=== PATIENT | female | born 1990 | race Caucasian/White ===

== ENCOUNTER 2019-06-20 11:14 | Inpatient (IN) | payer OTHER ==
[2019-06-20] MEDS ORDERED: Acetaminophen 325 MG Tab PO PRN (11:44)
[2019-06-20] MEDS ORDERED: Ondansetron 4 MG/2 ML SDV IVPUSH PRN (11:45)
[2019-06-20] MEDS ORDERED: Acetaminophen 650 MG Supp RECTAL PRN (11:45)
[2019-06-20] MEDS ORDERED: HYDROmorphone 0.5 MG/0.5 ML Syringe IVPUSH PRN (11:46)
[2019-06-20] MEDS ORDERED: Pantoprazole 40 MG Vial IV SCH ×2 (12:00→21:00)
[2019-06-20] MEDS: Dextrose 5%-Lactated Ringers 1,000 ML IV SCH (12:41)
[2019-06-20] MEDS ORDERED: MVI, Adult with Vitamin K 10 ML, Chromium/Copper/Mang/Selen/Zn 1 ML in Dextrose 5%-Lact... IV ONE ×3 (18:30)
[2019-06-21] MEDS: Dextrose 5%-Lactated Ringers 1,000 ML IV SCH ×4 (00:22→23:25)
[2019-06-21] MEDS ORDERED: Bupivacaine 0.5% 50 ML MDV ONE (06:10)
[2019-06-21] MEDS ORDERED: Meropenem 500 MG SDV ONE (06:10)
[2019-06-21] MEDS ORDERED: Lidocaine 1% with EPINEPHrine 1:100,000 50 ML MDV ONE (06:11)
[2019-06-21] MEDS ORDERED: Acetaminophen 500 MG Tab PO ONE (06:30)
[2019-06-21] MEDS ORDERED: Neostigmine Methylsulfate 1 MG/ML 5 ML Syringe ONE (06:53)
[2019-06-21] MEDS ORDERED: Glycopyrrolate 0.2 MG/ML 5 ML MDV ONE (06:53)
[2019-06-21] MEDS ORDERED: Rocuronium 50 MG/5 ML Vial ONE (06:53)
[2019-06-21] MEDS ORDERED: Dexamethasone 4 MG/ML SDV ONE (06:53)
[2019-06-21] MEDS ORDERED: Lactated Ringers 1,000 ML ONE (06:53)
[2019-06-21] MEDS ORDERED: Succinylcholine 200 MG/10 ML MDV ONE (06:53)
[2019-06-21] MEDS ORDERED: Droperidol 5 MG/2 ML SDV ONE (06:53)
[2019-06-21] MEDS ORDERED: fentaNYL 250 MCG/5 ML SDV ONE (06:53)
[2019-06-21] MEDS ORDERED: Propofol 200 MG/20 ML SDV ONE (06:53)
[2019-06-21] MEDS ORDERED: Ondansetron 4 MG/2 ML SDV ONE (06:53)
[2019-06-21] MEDS ORDERED: Lidocaine 2% 100 MG/5 ML Syringe IVPUSH SCH (08:00)
[2019-06-21] MEDS ORDERED: Lidocaine 0.4%/D5W 2 GM/500 ML BAG IV SCH (08:00)
[2019-06-21] MEDS ORDERED: cefOXitin 2 GM in Sodium Chloride 0.9% 50 ML IV ONE (08:00)
[2019-06-21] MEDS ORDERED: Ketamine 500 MG/5 ML MDV IV SCH (08:00)
[2019-06-21] MEDS ORDERED: Ketamine 50 MG in Sodium Chloride 0.9% 49.5 ML IV SCH (08:00)
[2019-06-21] MEDS ORDERED: Ropivacaine 40 ML, dexAMETHasone 8 MG, EPINEPHrine 0.4 MG, Sodium Chloride 0.9% 37.6 ML NERVRT SCH ×4 (08:00)
[2019-06-21] MEDS ORDERED: hydrOXYzine HCL 100 MG/2 ML SDV IM ONE (09:08)
[2019-06-21] MEDS ORDERED: diphenhydrAMINE 50 MG/ML SDV IVPUSH PRN (09:48)
[2019-06-21] MEDS ORDERED: Metoclopramide 10 MG/2 ML SDV IVPUSH PRN (09:48)
[2019-06-21] MEDS ORDERED: hydrOXYzine HCL 100 MG/2 ML SDV IM PRN (09:48)
[2019-06-21] MEDS ORDERED: Labetalol 20 MG/4 ML Syringe IVPUSH PRN (09:48)
[2019-06-21] MEDS ORDERED: Scopolamine 1.5 MG Transdermal Patch TOP SCH (10:00)
[2019-06-21] MEDS: Lidocaine 5% 700 MG Patch TRDERM SCH (11:01)
[2019-06-21] MEDS: busPIRone 5 MG Tab PO SCH ×2 (11:01→22:22)
[2019-06-21] MEDS: HYDROmorphone 0.5 MG/0.5 ML Syringe IVPUSH PRN ×2 (11:11→17:13)
[2019-06-21] MEDS: HYDROmorphone 1 MG/ML Syringe IV PRN ×3 (13:15→23:26)
[2019-06-21] MEDS: Acetaminophen 325 MG Tab PO SCH ×2 (13:31→19:39)
[2019-06-21] MEDS: cefOXitin 2 GM in Sodium Chloride 0.9% 50 ML IV SCH ×2 (13:31→19:39)
[2019-06-21] MEDS ORDERED: MVI, Adult with Vitamin K 10 ML, Thiamine 200 MG, Chromium/Copper/Mang/Selen/Zn 1 ML in... IV SCH ×4 (16:00)
[2019-06-21] MEDS: Heparin Sodium 5,000 Units/ML Vial SUBCUT SCH (16:01)
[2019-06-21] MEDS ORDERED: Pantoprazole 40 MG Vial IV SCH (21:00)
[2019-06-21] MEDS: Amitriptyline 25 MG Tab PO SCH (22:23)
[2019-06-22] MEDS: cefOXitin 2 GM in Sodium Chloride 0.9% 50 ML IV SCH (02:29)
[2019-06-22] MEDS: HYDROmorphone 1 MG/ML Syringe IV PRN ×2 (02:30→05:09)
[2019-06-22] MEDS: Acetaminophen 325 MG Tab PO SCH ×4 (02:41→20:26)
[2019-06-22] MEDS ORDERED: Iopamidol 612 MG/ML 50 ML SDV PO ONE (04:00)
[2019-06-22] MEDS: Heparin Sodium 5,000 Units/ML Vial SUBCUT SCH ×2 (05:18→16:23)
--- NOTE | 2019-06-22 05:20 | CRLCR ---
INDICATION: Post op bowel resection. PRELIMINARY IMPRESSIONS: 1. No evidence of contrast extravasation is noted on 2 static submitted images. 2. Surgical drain is present in the left upper quadrant. Agree with preliminary report. No additional findings. Dictated by: Leonardo Bay MD @ 06/23/2019 08:37:51 (Electronically Signed)
[2019-06-22] MEDS ORDERED: HYDROmorphone 2 MG Tab PO PRN (07:54)
[2019-06-22] MEDS ORDERED: Dextrose 5%-Lactated Ringers 1,000 ML IV SCH (08:00)
[2019-06-22] MEDS ORDERED: diphenhydrAMINE 25 MG Cap PO PRN (09:24)
[2019-06-22] MEDS: Acetaminophen/oxyCODONE 325-5 MG Tab PO PRN ×4 (09:49→22:10)
[2019-06-22] MEDS: Docusate Sodium 100 MG Cap PO SCH ×2 (09:50→20:35)
[2019-06-22] MEDS: Bisacodyl 5 MG Tab PO SCH ×2 (09:50→20:35)
[2019-06-22] MEDS: busPIRone 5 MG Tab PO SCH ×2 (09:50→20:34)
[2019-06-22] MEDS: SCOPOLAMINE PATCH CHECK TOP SCH (09:51)
[2019-06-22] MEDS: Lidocaine 5% 700 MG Patch TRDERM SCH (09:51)
[2019-06-22] MEDS: Magnesium Sulfate/Water 2 GM in Premix Bag 1 BAG IV SCH ×3 (09:51→22:10)
--- NOTE | 2019-06-22 10:05 | PN ---
DATE OF SERVICE: 06/20/2019 The patient was seen in the emergency room in [place] overnight without a definitive diagnosis. On presenting here, it was fairly clear that she has a partial small bowel obstruction. This has been going on for probably a few weeks, but more intensely in the last few days. The patient describes bloating and cramping after eating, and she has been physically massaging the area of fullness, which will likely be an of distended small bowel and moves the air through that area with mechanical augmentation from pressure on the abdomen. The patient is comfortable at this point. The plan will be to evaluate the patient up and proceed with a limited laparotomy tomorrow with lysis of adhesions and/or bowel resection as indicated. Potential risks including bleeding, infection, injury to underlying viscera, problems with recurrent bowel obstruction over time were reviewed, and the patient wishes to proceed. Her labs all look fairly good other than her liver function tests, which were chronically elevated. We will add a liver biopsy to the equation tomorrow as well. Ab Portillo MD /[id number]
--- NOTE | 2019-06-22 11:20 | PN ---
DATE OF SERVICE: 06/22/2019 The patient has been afebrile with stable vital signs. Oral intake was fairly good and will go up to step-3 diet today. Her upper GI x-ray looks good as well. Will switch over to oral pain medicine. She will likely be ready for discharge home tomorrow. Ab Portillo MD /[id number]
[2019-06-22] MEDS ORDERED: MVI, Adult with Vitamin K 10 ML, Thiamine 200 MG, Chromium/Copper/Mang/Selen/Zn 1 ML in... IV SCH ×4 (16:00)
[2019-06-22] MEDS: CREON 24000 UNIT PO SCH (16:24)
[2019-06-22] MEDS: Amitriptyline 25 MG Tab PO SCH (20:35)
[2019-06-22] MEDS ORDERED: Pantoprazole 40 MG Tab.CR PO SCH (21:00)
[2019-06-22] MEDS: Cyclobenzaprine 10 MG Tab PO PRN (21:03)
[2019-06-23] MEDS: Acetaminophen 325 MG Tab PO SCH ×2 (01:43→07:45)
[2019-06-23] MEDS: Cyclobenzaprine 10 MG Tab PO PRN (04:33)
[2019-06-23] MEDS: Heparin Sodium 5,000 Units/ML Vial SUBCUT SCH (04:33)
[2019-06-23] MEDS: Magnesium Sulfate/Water 2 GM in Premix Bag 1 BAG IV SCH (04:40)
[2019-06-23] MEDS: CREON 24000 UNIT PO SCH (07:44)
[2019-06-23] MEDS ORDERED: Ketorolac 60 MG/2 ML SDV IM ONE (09:00)
[2019-06-23] MEDS ORDERED: Cyanocobalamin (Vitamin B12) 1,000 MCG/ML SDV IM ONE (09:00)
[2019-06-23] MEDS: Bisacodyl 5 MG Tab PO SCH (09:29)
[2019-06-23] MEDS: Docusate Sodium 100 MG Cap PO SCH (09:29)
[2019-06-23] MEDS: busPIRone 5 MG Tab PO SCH (09:29)
[2019-06-23] MEDS: SCOPOLAMINE PATCH CHECK TOP SCH (09:30)
--- NOTE | 2019-06-23 09:34 | DISCH ---
ADMISSION DIAGNOSES: 1. Postprandial abdominal pain. 2. Status post Karla-en-Y gastric bypass surgery. 3. Unspecified surgical malabsorption. 4. B12 deficiency. 5. Vitamin D deficiency. 6. Pancreatic insufficiency. DISCHARGE DIAGNOSES: 1. Exploratory laparotomy with lysis of adhesions. a. Reduction of small bowel volvulus and closure of internal hernia. b. Small bowel resection. c. Second-degree enterotomy to re-establish Karla-en-Y bowel anatomy. d. Placement of Interceed mesh for partial small bowel obstruction secondary to focal volvulus and intussusception at the jejunojejunostomy and extensive abdominal adhesions. HISTORY: Gudelia Gramajo is a 29-year-old female who presented with postprandial abdominal pain. After preoperative evaluation and discussion of possible risks and possible complications, she wished to proceed with surgical procedure. She was hospitalized on 06/20/2019 for IV fluids, pain management, and her surgery was on 06/21/2019. She had no operative complications. Postop day #1, she was started on oral pain medication and her diet was advanced to step 3. She was able to be discharged to home on postoperative day #2. PHYSICAL EXAMINATION: GENERAL: Gudelia is a 29-year-old female. VITAL SIGNS: Height is 5 feet 5 inches, weight is 178 pounds. TPR is 98, 78, 16, blood pressure 113/72. HEENT: Negative. NECK: Supple. HEART: Regular rate and rhythm. LUNGS: Clear. ABDOMEN: Aquacel dressing is on. EXTREMITIES: Without peripheral edema. DISPOSITION: Discharged to home. CONDITION: Stable and improving. FOLLOWUP: Followup appointment with Mica Greco PA-C, at [facility] on 07/02/2019 at 9:00 a.m. HOME MEDICATIONS: 1. Percocet 5/325 mg 1 every 6 hours p.r.n. pain, #28. 2. Tylenol 650 mg every 6 hours p.r.n. pain. 3. Dulcolax 10 mg oral twice daily. 4. Celebrex 200 mg p.o. daily, #14. 5. Flexeril 10 mg oral q.6 hours p.r.n. muscle spasms, #30. 6. Docusate 100 mg oral twice daily. 7. She is to resume taking her home medications: a. Elavil 25 mg at bedtime. b. Creon 2 capsules 3 times a day. c. Cymbalta 20 mg p.o. daily. d. Hyoscyamine 0.125 mg sublingual every 4 hours p.r.n. esophageal spasm. e. Her recommended vitamins and supplements. DIET: Step 3 gastric bypass diet. Drink 8 to 10 glasses of water a day. ACTIVITY: No lifting greater than 10 pounds for 6 weeks. Other activity: Walk at least 6 times daily inside your home. Driving: Do not drive for 6 hours after pain medication. Shower/bathing: May shower. DISCHARGE INSTRUCTIONS: Notify provider if any fever, increased pain, nausea, or vomiting. Keep site clean and dry. Take off Aquacel dressing on , 06/26/2019. Wear abdominal binder for 6 weeks as tolerated. SPECIAL INSTRUCTION: Use incentive spirometer 10 times every hour while awake.
--- NOTE | 2019-06-25 09:17 | OR ---
CORRECTED REPORT DATE OF PROCEDURE: 06/20/2019 SURGEON: Ab Portillo MD PREOPERATIVE DIAGNOSIS: 1. Partial small bowel obstruction. 2. Elevated liver function tests. POSTOPERATIVE DIAGNOSES: 1. Partial small bowel obstruction secondary to focal volvulus and intussusception at jejunojejunostomy. 2. Extensive intraabdominal adhesions. 3. Elevated liver function tests. OPERATIVE PROCEDURES: Exploratory laparotomy with lysis of adhesions and: 1. Reduction of small bowel volvulus and closure of internal hernia (87376). 2. Small bowel resection (51457). 3. Secondary enteroenterostomy to reestablish Karla-en-Y small bowel anatomy (30550). 4. Placement of Interceed mesh to limit recurrent adhesion formation between pelvic and abdominal quintero and underlying viscera (53415). 5. Core biopsies left lobe of liver ANESTHESIA: General. INDICATION FOR PROCEDURE: The patient was seen yesterday morning fairly early in the [place] [facility]. At that point, a firm diagnosis for abdominal pain was not established. She was then seen in the [facility] yesterday and a clear-cut history of partial small bowel obstruction with the patient complaining of extended period of postprandial crampy pain, bloating, and fullness, along with audible bowel sounds all emanating in the left upper and mid abdomen. Plan is to proceed with a limited laparotomy with release of small bowel obstruction. This may involve reduction of any volvulus that might be present, as well as possible bowel resection. Potential risks of the procedure including bleeding, infection, leaks from any GI tract closures, problems with obstruction recurring over time, as well as the remote possibility of cardiopulmonary, septic, or hemorrhagic complications leading to were all discussed, and the patient wishes to proceed. Additionally, the patient has persistently elevated LFT's; will therefore do a liver biopsy to clarify any liver pathology DETAILS OF PROCEDURE: The patient was taken to the operating room. After general endotracheal anesthesia was induced, a Cruz catheter was inserted, and the abdomen prepped and draped. A midline incision, roughly a handsbreadth, from the umbilicus superiorly was then made and carried down through the full-thickness of abdominal wall. Upon entering the peritoneal cavity, general exploration was undertaken. There was quite a bit in the way of adhesions. Some of these were to the anterior abdominal wall, between the small bowel and omentum. Otherwise, there were quite extensive adhesions between loops of the small bowel present as well. These were all taken down. During the course of the dissection, the patient was noted to have a focal volvulus with rotation of a portion of the Karla limb underneath the mesenteric defect associated with a jejunojejunostomy. This was reduced and that area comfortably closed with a silk stitch to close off that defect. The patient's jejunojejunostomy was noted to be markedly edematous and reddened. This would appear probably having been involved in recent episodes of volvulus, accounting for some symptoms, in addition to the volvulus. Given this, a decision was made to resect that anastomosis. Three components of that bowel were divided with DAKSHA staplers as it entered the anastomosis, and the underlying mesentery then divided with Harmonic scalpel, and the specimen then delivered from the field. GI tract continuity was then established with initial [id number] enteroenterostomy between what had been the distal-most biliopancreatic limb and the proximal-most common limb. This was accomplished with internal firing of the Endo-DAKSHA 60 mm stapler. The common opening was then closed transversely with same stapler. The Karla-en-Y anatomy was then established by anastomosing what had been the distal-most Karla limb to the bowel roughly 15 cm distal to the first anastomosis. This was done with the same sequence of staplers. The areas of both anastomoses were reinforced with some 3-0 Vicryl stitch and the mesenteric defect then closed with 2-0 silk stitch. At that point, no further problems were noted. The abdomen was irrigated with antibiotic-containing saline solution. There was not sufficient omentum to cover the area of the incision, as well as lower pelvic and abdominal quintero. So as to prevent adhesion, an Interceed mesh was placed across that area. The midline fascia was then approximated with #2 Vicryl stitch, the subcutaneous tissue with 2 layers of 3 and 4-0 Vicryl stitch deep, and sandip for the skin. Intraoperatively, the patient received bilateral transversus abdominis plane blocks and also had the incision anesthetized with some 0.5% Marcaine and 1% lidocaine mixed. The patient was taken to the recovery room in satisfactory condition. The liver was grossly normal / not enlarged. Two core biopsies were obtained from the left lobe of the liver. The bleeding was controlled with cautery. Ab Portillo MD /[id number]
== END 2019-06-23 10:49 | disposition home or self-care (01) | DRG 331 ==
LOC: JP.ICU 11:14 → JP.MS 06-21 10:12
PROVIDERS: ADMIT Surgery; ATTEND Surgery
PROC: 0DB80ZZ Excision of Small Intestine, Open Approach (ICD-10-PCS; principal; 2019-06-20)
PROC: 0DNW0ZZ Release Peritoneum, Open Approach (ICD-10-PCS; 2019-06-20)
PROC: 0FB20ZX Excision of Left Lobe Liver, Open Approach, Diagnostic (ICD-10-PCS; 2019-06-20)
PROC: 0DS80ZZ Reposition Small Intestine, Open Approach (ICD-10-PCS; 2019-06-20)
PROC: 0WQF0ZZ Repair Abdominal Wall, Open Approach (ICD-10-PCS; 2019-06-20)
PROC: 3E0M05Z Introduction of Adhesion Barrier into Peritoneal Cavity, Open Approach (ICD-10-PCS; 2019-06-20)
DX: K56.51 Intestinal adhesions [bands], with partial obstruction (principal); G25.81 Restless legs syndrome; E66.9 Obesity, unspecified; J45.909 Unspecified asthma, uncomplicated; G47.00 Insomnia, unspecified; R79.89 Other specified abnormal findings of blood chemistry; K46.9 Unspecified abdominal hernia without obstruction or gangrene; Z79.51 Long term (current) use of inhaled steroids; Z79.899 Other long term (current) drug therapy; Z98.84 Bariatric surgery status; Z90.49 Acquired absence of other specified parts of digestive tract; Z88.8 Allergy status to other drugs, medicaments and biological substances; Z88.1 Allergy status to other antibiotic agents; Z88.2 Allergy status to sulfonamides
CPT/HCPCS: 36415; 74240; 80053; 80076; 82150; 82306; 82607; 82728; 82746; 83690; 83735; 84100; 84425; 85025; 85027; 88307; 88313; 94762; A9270-GY; C9113; J0171; J0330; J0694; J1100; J1170; J1644; J1790; J1885; J2185; J2405; J2704; J2710; J2795; J3010; J3410; J3411; J3420; J3475; J3490; J7050; J7120; J7121; Q9967

== ENCOUNTER 2019-07-05 18:59 | Inpatient (IN) | payer OTHER ==
[2019-07-05] MEDS ORDERED: Ondansetron 4 MG/2 ML SDV IVPUSH PRN (19:27)
[2019-07-05] MEDS ORDERED: HYDROmorphone 1 MG/ML Syringe IVPUSH PRN (19:27)
[2019-07-05] MEDS: CREON PO SCH ×2 (19:48→19:49)
[2019-07-05] MEDS: Dextrose 5%-Lactated Ringers 1,000 ML IV SCH (19:50)
[2019-07-05] MEDS ORDERED: Melatonin 3 MG Tab PO PRN (19:59)
[2019-07-05] MEDS: Amitriptyline 10 MG Tab PO SCH (20:35)
[2019-07-05] MEDS: Acetaminophen 325 MG Tab PO PRN (20:35)
[2019-07-05] MEDS ORDERED: Amitriptyline 25 MG Tab PO SCH (21:00)
[2019-07-06] MEDS: Dextrose 5%-Lactated Ringers 1,000 ML IV SCH ×3 (03:43→21:31)
[2019-07-06] MEDS ORDERED: Bupivacaine 0.5% 50 ML MDV ONE (07:02)
[2019-07-06] MEDS ORDERED: Lidocaine 1% with EPINEPHrine 1:100,000 50 ML MDV ONE (07:03)
[2019-07-06] MEDS: Acetaminophen 325 MG Tab PO PRN (07:15)
[2019-07-06] MEDS: CREON PO SCH ×2 (07:38→12:58)
[2019-07-06] MEDS ORDERED: Meropenem 500 MG SDV ONE (07:44)
[2019-07-06] MEDS ORDERED: Celecoxib 200 MG Cap PO ONE (08:00)
[2019-07-06] MEDS ORDERED: fentaNYL 250 MCG/5 ML SDV ONE (08:01)
[2019-07-06] MEDS ORDERED: Propofol 200 MG/20 ML SDV ONE (08:02)
[2019-07-06] MEDS ORDERED: Neostigmine Methylsulfate 1 MG/ML 5 ML Syringe ONE (08:02)
[2019-07-06] MEDS ORDERED: Glycopyrrolate 0.2 MG/ML 5 ML MDV ONE (08:02)
[2019-07-06] MEDS ORDERED: Succinylcholine 200 MG/10 ML MDV ONE (08:02)
[2019-07-06] MEDS ORDERED: Dexamethasone 4 MG/ML SDV ONE (08:02)
[2019-07-06] MEDS ORDERED: Rocuronium 50 MG/5 ML Vial ONE (08:02)
[2019-07-06] MEDS ORDERED: Ondansetron 4 MG/2 ML SDV ONE (08:02)
[2019-07-06] MEDS ORDERED: Ketamine 50 MG in Sodium Chloride 0.9% 49.5 ML IV SCH (09:00)
[2019-07-06] MEDS ORDERED: Magnesium Sulfate 2.2 GM in Sodium Chloride 0.9% 100 ML IV ONE (09:00)
[2019-07-06] MEDS ORDERED: Ketamine 500 MG/5 ML MDV IV SCH (09:00)
[2019-07-06] MEDS ORDERED: Ropivacaine 38 ML, dexAMETHasone 8 MG, EPINEPHrine 0.4 MG, Sodium Chloride 0.9% 39.6 ML NERVRT SCH ×4 (09:00)
[2019-07-06] MEDS ORDERED: Albuterol/Ipratropium 3.0-0.5 MG/3 ML Neb Soln INH ONE (09:00)
[2019-07-06] MEDS ORDERED: Magnesium Sulfate 4.8 GM in Sodium Chloride 0.9% 250 ML IV ONE (09:00)
[2019-07-06] MEDS ORDERED: Ampicillin/Sulbactam Na 3 GM in Sodium Chloride 0.9% 100 ML IV ONE (09:00)
[2019-07-06] MEDS ORDERED: Lactated Ringers 1,000 ML ONE (09:47)
[2019-07-06] MEDS ORDERED: hydrOXYzine HCL 100 MG/2 ML SDV IM ONE (10:27)
[2019-07-06] MEDS ORDERED: diphenhydrAMINE 50 MG/ML SDV IVPUSH PRN ×2 (10:48→12:27)
[2019-07-06] MEDS ORDERED: diphenhydrAMINE 25 MG Cap PO PRN (10:48)
[2019-07-06] MEDS ORDERED: Ondansetron 4 MG/2 ML SDV IVPUSH PRN (10:48)
[2019-07-06] MEDS ORDERED: Naloxone 0.4 MG/ML SDV IVPUSH PRN (10:48)
[2019-07-06] MEDS ORDERED: Meperidine PF 100 MG/ML Syringe IM ONE (10:55)
[2019-07-06] MEDS ORDERED: Naloxone 0.4 MG/ML SDV IV PRN (12:20)
[2019-07-06] MEDS ORDERED: Labetalol 20 MG/4 ML Syringe IVPUSH PRN (12:27)
[2019-07-06] MEDS ORDERED: Cyclobenzaprine 10 MG Tab PO PRN (12:27)
[2019-07-06] MEDS ORDERED: hydrOXYzine HCL 100 MG/2 ML SDV IM PRN (12:27)
[2019-07-06] MEDS ORDERED: Metoclopramide 10 MG/2 ML SDV IVPUSH PRN (12:27)
[2019-07-06] MEDS ORDERED: Acetaminophen 500 MG Tab PO PRN (12:27)
[2019-07-06] MEDS ORDERED: Albuterol 8 GM Inhaler INH PRN (12:43)
[2019-07-06] MEDS: HYDROmorphone/Normal Saline 15 MG/30 ML PCA IV PRN (13:22)
[2019-07-06] MEDS ORDERED: Pantoprazole 40 MG Vial IVPUSH SCH (14:00)
[2019-07-06] MEDS ORDERED: Tamsulosin 0.4 MG Cap.ER PO ONE (14:00)
[2019-07-06] MEDS: SCOPOLAMINE PATCH CHECK TOP SCH (14:25)
[2019-07-06] MEDS: Acetaminophen 500 MG Tab PO SCH ×2 (14:26→21:40)
[2019-07-06] MEDS: MVI, Adult with Vitamin K 10 ML, Thiamine 200 MG, Chromium/Copper/Mang/Selen/Zn 1 ML in... IV SCH ×4 (14:31)
[2019-07-06] MEDS: Ampicillin/Sulbactam Na 3 GM in Sodium Chloride 0.9% 100 ML IV SCH ×2 (14:38→21:40)
[2019-07-06] MEDS ORDERED: Magnesium Sulfate 4.8 GM in Sodium Chloride 0.9% 250 ML IV SCH (15:30)
[2019-07-06] MEDS: CREON 24000 UNIT PO SCH (19:02)
[2019-07-06] MEDS: Heparin Sodium 5,000 Units/ML Vial SUBCUT SCH (19:40)
[2019-07-06] MEDS: Docusate Sodium 100 MG Cap PO SCH (21:40)
[2019-07-06] MEDS: Tamsulosin 0.4 MG Cap.ER PO SCH (21:40)
[2019-07-06] MEDS: Amitriptyline 10 MG Tab PO SCH (21:40)
[2019-07-06] MEDS: Bisacodyl 5 MG Tab PO SCH (21:40)
[2019-07-07] MEDS: Ampicillin/Sulbactam Na 3 GM in Sodium Chloride 0.9% 100 ML IV SCH ×2 (03:34→09:00)
[2019-07-07] MEDS ORDERED: Iopamidol 612 MG/ML 50 ML SDV PO STA (03:43)
--- NOTE | 2019-07-07 04:34 | CRLCR ---
Indication: Leak check Technique: Two frontal views of the abdomen, following the administration of oral contrast. Comparison: 06/22/2019 Findings/Impression : Postsurgical changes again seen. Contrast traverses the gastrojejunostomy without evidence of gross extravasation, with opacification of lower abdominal and pelvic small bowel segments on the 2nd image. Dictated by Emeka Rasmussen MD @ 07/07/2019 4:31:20 AM Dictated by: Emeka Rasmussen MD @ 07/07/2019 04:31:26 (Electronically Signed)
[2019-07-07] MEDS: Acetaminophen 500 MG Tab PO SCH ×3 (05:35→22:33)
[2019-07-07] MEDS ORDERED: Scopolamine 1.5 MG Transdermal Patch TRDERM PRN (07:12)
[2019-07-07] MEDS: CREON 24000 UNIT PO SCH ×3 (08:44→17:38)
[2019-07-07] MEDS: Docusate Sodium 100 MG Cap PO SCH ×2 (08:44→20:01)
[2019-07-07] MEDS: Celecoxib 200 MG Cap PO SCH ×2 (08:44→20:01)
[2019-07-07] MEDS: DULoxetine 20 MG Cap PO SCH (08:45)
[2019-07-07] MEDS: Heparin Sodium 5,000 Units/ML Vial SUBCUT SCH ×2 (08:45→19:54)
[2019-07-07] MEDS: Bisacodyl 5 MG Tab PO SCH ×2 (08:45→20:01)
--- NOTE | 2019-07-07 09:56 | PN ---
DATE OF SERVICE: 07/07/2019 SUBJECTIVE: Gudelia is postoperative day #1. Vital signs have been stable. Oral intake 450. Urine output via Cruz catheter is 1975. She has reported some nausea. Pain has been controlled with a PAN CLEANER. REVIEW OF SYSTEMS: Remainder of review of systems negative for any pertinent positives and negatives. OBJECTIVE: GENERAL: Gudelia Gramajo is a pleasant 29-year-old female. She is awake and alert. VITAL SIGNS: TPR is 96.2, 64, 18, blood pressure 101/66. HEENT: Negative. NECK: Supple. HEART: Regular rate and rhythm. LUNGS: Clear. ABDOMEN: Dressings dry and intact, and abdominal binder is on. ASSESSMENT: 1. Exploratory laparotomy with lysis of adhesions. a. Resection of the jejunojejunostomy. b. Reconstruction of the enteroenterostomy for re-establishing Karla-en-Y bowel anatomy. c. Separate small bowel strictureplasty. d. Enterotomy for decompression of distended small bowel. POSTOPERATIVE DIAGNOSES: Edematous obstruction of the jejunojejunostomy, focal stricture at the distal biliary pancreatic limb, and proximal distention of the Karla limb. Date of surgery: 07/06/2019. Surgeon: Ab Portillo MD. PLAN: 1. Step 2 gastric bypass diet with no cereal. 2. Scopolamine patch, apply now. Replace every 72 hours. 3. Continue Cruz catheter for accurate intake and output. 4. Continue PAN CLEANER for pain management. 5. We will evaluate p.r.n. or in a.m. 6. Encouraged use of incentive spirometer and ambulating. Mica Greco PA-C /[id number]
[2019-07-07] MEDS: SCOPOLAMINE PATCH CHECK TOP SCH (10:12)
[2019-07-07] MEDS: HYDROmorphone/Normal Saline 15 MG/30 ML PCA IV PRN (10:40)
--- NOTE | 2019-07-07 12:23 | OR ---
DATE OF PROCEDURE: 07/06/2019 SURGEON: Ab Portillo MD PREOPERATIVE DIAGNOSIS: Obstructed jejunojejunostomy. POSTOPERATIVE DIAGNOSES: 1. Edematous and obstructed jejunojejunostomy. 2. Focal stricture of distal biliopancreatic limb. 3. Marked distention of Karla limb proximal to jejunojejunostomy. OPERATIVE PROCEDURES: 1. Exploratory laparotomy with lysis of adhesions. a. Resection of jejunojejunostomy (78008). b. Secondary enteroenterostomy for reestablishing Karla-en-Y small bowel anatomy (52130). c. Separate small bowel stricturoplasty (79954). d. Enterostomy for tube decompression of distended Karla limb (17187). e. Placement of Interceed mesh to displace pelvic and abdominal wall from underlying viscera to limit recurrent adhesion formation (72763). ANESTHESIA: General. INDICATIONS FOR PROCEDURE: This is a 29-year-old status post a recent small-bowel resection for an obstruction. She had been doing well until the last 48 hours or so when she developed a crampy abdominal pain particularly after eating. CT scan showed what appeared to be obstruction at the recent enteroenterostomy with fecalization of the small bowel contents involving that anastomosis. Plan is to proceed with an exploratory laparotomy with lysis of adhesions and resection of small bowel as necessary. Potential risks including bleeding, infection, leaks from GI tract closures, possible recurrence of the problem over time as well as possibility of cardiopulmonary, septic, or hemorrhagic complications leading to were all discussed, and the patient wishes to proceed. DETAILS OF PROCEDURE: The patient was taken to the operating room, and after general endotracheal anesthesia was induced, a Cruz catheter was inserted, and the abdomen was prepped and draped. The previous upper midline incision was reused and carried down through the skin, subcutaneous tissue, fascia. In the peritoneal cavity, there were some scattered adhesions present to the abdominal wall, but most of these had been prevented due to an Interceed mesh that was placed in the recent procedure. Exploration showed markedly distended Karla limb leading up to a quite edematous jejunojejunostomy. Just beyond that, there was a sharp adhesion to the small bowel in the common limb and this appeared to be the actual cause of the obstruction. After this was freed up, the anastomosis was felt to be still quite edematous and at risk for not emptying well and we felt it would be best to revise that. Components of that enteroenterostomy were then divided more or less flush with the anastomosis with DAKSHA sandip as well as the underlying mesentery and that specimen delivered from the field. The small bowel anatomy was then reconstructed with initial anastomosis between what had been the distal-most biliopancreatic limb to the proximal-most common limb. This was a side- to-side enteroenterostomy with 60 mm DAKSHA stapler. Common opening was closed transversely with same stapler and angles anastomosed and mesenteric defect approximated with some 3-0 Vicryl stitch. The Karla-en-Y anatomy was then reconstructed with anastomosis of the Karla limb to the small bowel roughly 15 cm distal to the first anastomosis. This was closing up and we are essentially not changing the patient's limb lengths to any meaningful extent, so anastomosis was accomplished with same staple sequence, other than we made this anastomosis slightly longer with 1 additional 30 mm internal DAKSHA staple line. The angles of anastomosis in this case were reapproximated with some 3-0 Vicryl at the angles of anastomosis and mesenteric defect was closed with a 2-0 silk stitch and provided some permanency. Prior to this anastomosis, the end of the Karla limb had been opened and the tube placed into this area and the small bowel contents evacuated from the Karla limb. This again charlotte some semisolid material that we were basically able to suck all that out to make the anastomosis safer in terms of any food particles getting caught into the staple lines. Examination of the biliopancreatic limb showed an area of roughly 20 cm proximal to the current anastomosis which was fairly strictured in appearance. Common enterotomy was made and bowel flipped over on itself and then internal firing of the DAKSHA 60 mm stapler was accomplished, and likewise, this was closed off with a transversely oriented staple line and the angles of anastomosis were reinforced with some 3-0 Vicryl stitch, and in this case, there were no mesenteric defects. No further problems were noted at this point. The abdomen was irrigated with antibiotic- containing saline solution. Interceed mesh was then placed underneath the incision to limit recurrent adhesion formation. This extended down towards the pelvic wall as well. Midline fascia was then approximated with #2 Vicryl stitch and the subcutaneous tissue with 2 layers of 3-0 and 4-0 Vicryl stitch deep and then sandip for the skin. Dressing was applied. The patient was taken to the recovery room in satisfactory condition. During the procedure, the patient received bilateral transversus abdominis plane blocks and also having fascia injected with 0.5% Marcaine mixed with lidocaine to augment postoperative pain control. Ab Portillo MD /[id number]
[2019-07-07] MEDS: MVI, Adult with Vitamin K 10 ML, Thiamine 200 MG, Chromium/Copper/Mang/Selen/Zn 1 ML in... IV SCH ×4 (14:02)
[2019-07-07] MEDS: Pantoprazole 40 MG Delayed-Release Granules 1 Packet PO SCH (17:37)
[2019-07-07] MEDS: Amitriptyline 10 MG Tab PO SCH (20:01)
[2019-07-07] MEDS: Tamsulosin 0.4 MG Cap.ER PO SCH (20:01)
[2019-07-07] MEDS: Dextrose 5%-Lactated Ringers 1,000 ML IV SCH (20:05)
[2019-07-08] MEDS: Acetaminophen 500 MG Tab PO SCH ×3 (05:04→21:24)
[2019-07-08] MEDS: CREON 24000 UNIT PO SCH ×3 (08:50→17:29)
[2019-07-08] MEDS: Dextrose 5%-Lactated Ringers 1,000 ML IV SCH (08:50)
[2019-07-08] MEDS ORDERED: Cyanocobalamin (Vitamin B12) 1,000 MCG/ML SDV IM ONE (09:00)
[2019-07-08] MEDS: Celecoxib 200 MG Cap PO SCH ×2 (09:05→20:25)
[2019-07-08] MEDS: Bisacodyl 5 MG Tab PO SCH ×2 (09:06→20:25)
[2019-07-08] MEDS: Docusate Sodium 100 MG Cap PO SCH ×2 (09:06→20:25)
[2019-07-08] MEDS: Heparin Sodium 5,000 Units/ML Vial SUBCUT SCH ×2 (09:07→20:24)
[2019-07-08] MEDS: DULoxetine 20 MG Cap PO SCH (09:07)
[2019-07-08] MEDS: HYDROmorphone 2 MG Tab PO PRN ×4 (09:18→20:23)
[2019-07-08] MEDS: SCOPOLAMINE PATCH CHECK TOP SCH (10:39)
--- NOTE | 2019-07-08 13:15 | PN ---
DATE OF SERVICE: 07/08/2019 SUBJECTIVE: Gudelia is postoperative day #2. The pain has been controlled. Vital signs are stable. Oral intake 780, urine output 600. REVIEW OF SYSTEMS: Remainder of review of systems negative for any pertinent positives and negatives. OBJECTIVE: GENERAL: Gudelia Gramajo is a pleasant 29-year-old female. She is resting comfortably in bed. VITAL SIGNS: TPR is 95,7, 62, 15, blood pressure 93/60. HEENT: Negative. NECK: Supple. HEART: Regular rate and rhythm. LUNGS: Clear. ABDOMEN: Dressings dry and intact. Abdominal binder is on. EXTREMITIES: Without peripheral edema. ASSESSMENT: 1. Exploratory laparotomy with lysis of adhesions: a. Resection of the jejunojejunostomy. b. Reconstruction of the enteroenterostomy for re-establishing Karla-en-Y bowel anatomy. c. Separate small bowel strictureplasty. d. Enterotomy for decompression of distended small bowel. PLAN: 1. 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 2. She may shower. 3. Dilaudid 2 to 4 mg every 4 hours p.r.n. pain. 4. Continue use of incentive spirometer 10 times every hour while awake, ambulate. 5. Planned discharge in [facility]. Mica Greco PA-C /[id number]
[2019-07-08] MEDS: MVI, Adult with Vitamin K 10 ML, Thiamine 200 MG, Chromium/Copper/Mang/Selen/Zn 1 ML in... IV SCH ×4 (14:17)
[2019-07-08] MEDS: Pantoprazole 40 MG Delayed-Release Granules 1 Packet PO SCH (15:55)
[2019-07-08] MEDS: Amitriptyline 10 MG Tab PO SCH (20:25)
[2019-07-08] MEDS: Tamsulosin 0.4 MG Cap.ER PO SCH (20:26)
[2019-07-08] MEDS ORDERED: Calcium Carbonate 500 MG Tab.Chew PO PRN (20:59)
[2019-07-09] MEDS: HYDROmorphone 2 MG Tab PO PRN ×2 (03:34→09:00)
[2019-07-09] MEDS: Acetaminophen 500 MG Tab PO SCH (06:11)
[2019-07-09] MEDS ORDERED: Magnesium Hydroxide 400 MG/5 ML Susp 30 ML Cup PO PRN (07:39)
[2019-07-09] MEDS: CREON 24000 UNIT PO SCH (08:55)
[2019-07-09] MEDS: Celecoxib 200 MG Cap PO SCH (08:56)
[2019-07-09] MEDS: Bisacodyl 5 MG Tab PO SCH (08:56)
[2019-07-09] MEDS: Docusate Sodium 100 MG Cap PO SCH (08:57)
[2019-07-09] MEDS: DULoxetine 20 MG Cap PO SCH (08:57)
[2019-07-09] MEDS: Heparin Sodium 5,000 Units/ML Vial SUBCUT SCH (09:01)
--- NOTE | 2019-07-10 10:12 | DISCH ---
ADMISSION DIAGNOSES: Intractable nausea, vomiting, abdominal pain, status post repair of volvulus and small bowel obstruction on 06/21/2019 by Ab Portillo MD, SP Karla-en-Y gastric bypass surgery, insomnia secondary to restless legs syndrome, iron deficiency, bilateral dry eyes, epigastric pain, iron deficiency anemia, vitamin B12 deficiency, vitamin B1 deficiency, chronic daily headache. DISCHARGE DIAGNOSES: Intractable nausea, vomiting, abdominal pain, status post repair of volvulus and small bowel obstruction on 06/21/2019 by Ab Portillo MD, SP Karla-en-Y gastric bypass surgery, insomnia secondary to restless legs syndrome, iron deficiency, bilateral dry eyes, epigastric pain, iron deficiency anemia, vitamin B12 deficiency, vitamin B1 deficiency, chronic daily headache. HISTORY: Gudelia Gramajo had surgery at [facility] on 06/21/2019. She was doing well until she had sudden onset of intractable nausea, vomiting, and abdominal pain. She went to [facility] and was transferred to [place], [place]. After preoperative evaluation and discussion of possible risks and possible complications, she wished to proceed with surgical procedure. HOSPITAL COURSE: Surgery was on 07/06/2019. She had no operative complications. On postop day 1, she was started on a step 2 gastric bypass diet with no cereal. 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 On postop day 2, LIFE ENRICHMENT SPECIALIST was discontinued. Dressing off. Able to shower, and started on oral pain medication. On postop day 3, she was able to be discharged to home. Activity good. Pain was managed. Vital signs were stable. Oral intake adequate. PHYSICAL EXAMINATION: GENERAL: Gudelia Gramajo is a pleasant 29-year-old female. VITAL SIGNS: Height is 5 feet 5.35 inches, weight is 168 pounds 12 ounces, BMI 27.8. TPR 96.5, 74, 16. Blood pressure 100/73. HEENT: Negative. NECK: Supple. HEART: Regular rate and rhythm. LUNGS: Clear. ABDOMEN: Aquacel dressing is on stapled incision. Abdominal binder is on. EXTREMITIES: Without peripheral edema. DISPOSITION: Discharged to home. CONDITION: Stable and improving. FOLLOWUP: Followup appointment with Mica Greco PA-C, on 07/14/2019 at 10 a.m. HOME MEDICATIONS: 1. Tylenol Extra Strength 1000 mg every 8 hours scheduled. 2. Celebrex 200 mg oral daily, #14. 3. Flexeril 10 mg oral q.8 hours p.r.n. muscle spasms, #30. 4. Dilaudid 2 mg every 6 hours p.r.n. pain, #28. 5. Zofran ODT 4 mg every 4 hours p.r.n. nausea, #30. 6. Flomax 0.4 mg at bedtime, #14. She is to resume her home medications of Ventolin inhaler 2 puffs every 6 hours p.r.n. wheezing, Elavil 10 mg oral at bedtime, Creon 2 capsules oral daily 3 times a day, Cymbalta 20 mg oral daily, Colace 100 mg oral twice daily, bisacodyl 10 mg oral twice daily, hydroxyzine 25 mg oral daily p.r.n. anxiety. She is to discontinue taking her vitamins and supplements until after first postop appointment. DIET: Step 2 gastric bypass with no cereal for 2 weeks. OTHER ACTIVITY: No lifting greater than 10 pounds for 6 weeks. Walk at least 6 times daily inside your home. Driving: Do not drive for 1 week or within 6 hours of taking pain medication. Shower/bathing: May shower. DISCHARGE INSTRUCTIONS: Notify provider if any fever, increased pain, nausea, vomiting. Keep site clean and dry. Wound incision care. Wear abdominal binder for 6 weeks and then as tolerated. Take off Aquacel dressing on 07/12/2019. SPECIAL INSTRUCTION: Use incentive spirometer 10 times every hour while awake for over 1 week.
== END 2019-07-09 09:45 | disposition home or self-care (01) | DRG 326 ==
LOC: JP.MS 18:59
PROVIDERS: ADMIT Surgery; ATTEND Surgery
PROC: 0D160ZA Bypass Stomach to Jejunum, Open Approach (ICD-10-PCS; principal; 2019-07-05)
PROC: 0D980ZZ Drainage of Small Intestine, Open Approach (ICD-10-PCS; 2019-07-05)
PROC: 0DQ80ZZ Repair Small Intestine, Open Approach (ICD-10-PCS; 2019-07-05)
PROC: 0DNW0ZZ Release Peritoneum, Open Approach (ICD-10-PCS; 2019-07-05)
PROC: 3E0M05Z Introduction of Adhesion Barrier into Peritoneal Cavity, Open Approach (ICD-10-PCS; 2019-07-05)
DX: K94.13 Enterostomy malfunction (principal); K56.2 Volvulus; E51.9 Thiamine deficiency, unspecified; G47.00 Insomnia, unspecified; G25.81 Restless legs syndrome; D50.9 Iron deficiency anemia, unspecified; H04.123 Dry eye syndrome of bilateral lacrimal glands; E53.8 Deficiency of other specified B group vitamins; Z98.84 Bariatric surgery status; K59.00 Constipation, unspecified; D72.829 Elevated white blood cell count, unspecified; Z91.048 Other nonmedicinal substance allergy status; Z88.1 Allergy status to other antibiotic agents; Z88.2 Allergy status to sulfonamides; Z88.8 Allergy status to other drugs, medicaments and biological substances; Z91.09 Other allergy status, other than to drugs and biological substances; D64.9 Anemia, unspecified; J45.909 Unspecified asthma, uncomplicated; Z90.49 Acquired absence of other specified parts of digestive tract
CPT/HCPCS: 36415; 74240; 80053; 82728; 83735; 84100; 84702; 85027; 88307; A9270-GY; C9113; J0171; J0295; J0330; J1100; J1170; J1644; J2175; J2185; J2405; J2704; J2710; J2795; J3010; J3410; J3411; J3420; J3475; J3490; J7050; J7120; J7121; J7620-GY; Q9967

== ENCOUNTER 2019-08-31 20:08 | Emergency (ER) | payer OTHER ==
--- NOTE | 2019-08-31 20:52 | EDM.PDOC ---
ED HPI GENERAL MEDICAL PROBLEM - General Chief Complaint: Abdominal Pain Stated Complaint: CONCERNED ABOUT BOWEL OBSTRUCTION Time Seen by Provider: 08/31/19 20:52 Source of Information: Reports: Patient History Limitations: Reports: No Limitations - History of Present Illness INITIAL COMMENTS - FREE TEXT/NARRATIVE: pt arrived with a history of nausea and pain in the upper abdoman. Pt is post RNY and has had several bowel obstructions. she has had bad diarrhea for 3 weeks. She has 7-10 stools on a daily basis. Onset: Gradual Duration: Hour(s): Location: Reports: Abdomen Associated Symptoms: Reports: Malaise, Nausea/Vomiting, Weakness Middle Abdomen Pain Score (Numeric/FACES): 3 - Related Data Allergies Allergy/AdvReac Type Severity Reaction Status Date / Time sumatriptan Allergy Severe Hives Verified 08/31/19 20:32 divalproex sodium Allergy Intermediate Other Verified 08/31/19 20:32 [From Depakote] Sulfa (Sulfonamide Allergy Intermediate Rash Verified 08/31/19 20:32 Antibiotics) sulfamethoxazole Allergy Intermediate Rash Verified 08/31/19 20:32 [From Bactrim] venlafaxine HCl Allergy Intermediate Other Verified 08/31/19 20:32 [From Effexor] adhesive Allergy Mild Rash Verified 08/31/19 20:32 trimethoprim [From Bactrim] Allergy Mild Rash Verified 08/31/19 20:32 Home Meds: Home Meds Albuterol [Ventolin HFA] 2 puff INH Q6H PRN 01/26/14 [History] DULoxetine [Cymbalta] 20 mg PO DAILY 01/26/14 [History] Amitriptyline [Elavil] 25 mg PO BEDTIME 03/13/18 [History] Amylase/Lipase/Protease [Aurora DR 24,000 Unit] 3 cap PO TIDMEALS 06/20/19 [ History] Acetaminophen [Tylenol] 500 - 1,500 mg PO Q6H PRN 07/05/19 [History] Acetaminophen [Tylenol Extra Strength] 1,000 mg PO Q8H tablet 07/09/19 [Rx] Cyclobenzaprine [Flexeril] 10 mg PO Q8H PRN #30 tablet 07/09/19 [Rx] Ondansetron [Zofran ODT] 4 mg PO Q4H PRN #30 tab.dis 07/09/19 [Rx] Dicyclomine [Bentyl] 20 mg PO BID 08/31/19 [History] busPIRone [Buspar] 15 mg PO BID 08/31/19 [History] Past Medical History HEENT History: Reports: Other (See Below) Other HEENT History: wears reading glasses Cardiovascular History: Reports: Hypertension Respiratory History: Reports: Asthma, Bronchitis, Recurrent, Pneumonia, Recurrent Gastrointestinal History: Reports: Bowel Obstruction, Cholelithiasis, Chronic Constipation, Chronic Diarrhea, Diverticulosis, Gastritis, GERD, Irritable Bowel Syndrome, Other (See Below) Other Gastrointestinal History: elevated liver enzymes Genitourinary History: Reports: Retention, Urinary, UTI, Recurrent Other Genitourinary History: postop urinary retention 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: Musculoskeletal History: Reports: Back Pain, Chronic, Fracture, Other (See Below ) Other Musculoskeletal History: chronic back pain Neurological History: Reports: Headaches, Chronic, Migraines Psychiatric History: Reports: Anxiety, Depression, Emotional Problems, Panic Attack Endocrine/Metabolic History: Reports: Obesity/BMI 30+, Vitamin D Deficiency, Other (See Below) Other Endocrine/Metabolic History: hypoclycemic, vitamin A deficiency, pancreatic insufficiency Hematologic History: Reports: Anemia, B12 Deficiency, Iron Deficiency Dermatologic History: Reports: Other (See Below) Other Dermatologic History: occasional rash - Infectious Disease History Infectious Disease History: Reports: Chicken Pox - Past Surgical History HEENT Surgical History: Reports: None GI Surgical History: Reports: Bariatric Procedure, Cholecystectomy, EGD, Esophageal Dilatation, Hernia, Abdominal, Lysis of Adhesions, Small Bowel Other GI Surgeries/Procedures: c/s x2 Female Surgical History: Reports: Section, Other (See Below) Other Female Surgeries/Procedures: IUD - paragard Social & Family History - Family History Family Medical History: Noncontributory - Tobacco Use Smoking Status *Q: Never Smoker - Caffeine Use Caffeine Use: Reports: Energy Drinks Other Caffeine Use: zero calorie - Recreational Drug Use Recreational Drug Use: No ED ROS GENERAL - Review of Systems Review Of Systems: See Below Constitutional: Reports: Weakness, Decreased Appetite HEENT: Reports: No Symptoms Respiratory: Reports: No Symptoms Cardiovascular: Reports: No Symptoms Endocrine: Reports: No Symptoms GI/Abdominal: Reports: Abdominal Pain, Diarrhea, Nausea, Other : Reports: No Symptoms Musculoskeletal: Reports: No Symptoms Skin: Reports: No Symptoms ED EXAM, GI/ABD - Physical Exam Exam: See Below Text/Narrative:: pt arrived with pain in the upper abdoman. She is having about 5-7 stools daily. The diarrhea has been going on for 2 weeks. Exam Limited By: No Limitations General Appearance: Alert, Anxious, Mild Distress Ears: Normal TMs Nose: Normal Inspection Throat/Mouth: Normal Inspection Head: Atraumatic Neck: Normal Inspection Respiratory/Chest: No Respiratory Distress Cardiovascular: Regular Rate, Rhythm GI/Abdominal Exam: Other (tender in the upper abdoman not guarded. Pt has very hyperactive bowel sounds. ) (Female) Exam: Deferred Rectal (Female) Exam: Deferred Back Exam: Normal Inspection Extremities: Normal Inspection Neurological: Alert, Oriented, Normal Cognition Psychiatric: Normal Affect Course - Vital Signs Last Recorded V/S: Last Vital Signs Temp 36.4 C 08/31/19 20:30 Pulse 75 08/31/19 22:40 Resp 14 08/31/19 22:40 BP 107/75 08/31/19 22:40 Pulse Ox 99 08/31/19 22:40 - Orders/Labs/Meds Labs: Laboratory Tests 08/31/19 08/31/19 08/31/19 Range/Units 21:06 21:07 21:07 WBC 4.8 (4.5-11.0) K/uL RBC 4.10 (3.30-5.50) M/uL Hgb 11.6 L (12.0-15.0) g/dL Hct 38.0 (36.0-48.0) % MCV 93 (80-98) fL MCH 28 (27-31) pg MCHC 31 L (32-36) % Plt Count 233 (150-400) K/uL Neut % (Auto) 45 (36-66) % Lymph % (Auto) 41 (24-44) % [place] % (Auto) 13 H (2-6) % Eos % (Auto) 1 L (2-4) % Baso % (Auto) 1 (0-1) % Sodium 141 (140-148) mmol/L Potassium 3.1 L (3.6-5.2) mmol/L Chloride 104 (100-108) mmol/L Carbon Dioxide 26 (21-32) mmol/L Anion Gap 14.1 H (5.0-14.0) mmol/L BUN 5 L (7-18) mg/dL Creatinine 0.6 (0.6-1.0) mg/dL Est Cr Clr Drug Dosing 129.29 mL/min Estimated GFR (MDRD) > 60 (>60) Glucose 83 (74-106) mg/dL Calcium 8.0 L (8.5-10.1) mg/dL Total Bilirubin 0.5 (0.2-1.0) mg/dL AST 21 (15-37) U/L ALT 32 (12-78) U/L Alkaline Phosphatase 81 (46-116) U/L C-Reactive Protein (0.0-0.3) mg/dL Total Protein 6.8 (6.4-8.2) g/dL Albumin 3.3 L (3.4-5.0) g/dL Globulin 3.5 (2.3-3.5) g/dL Albumin/Globulin Ratio 0.9 L (1.2-2.2) Lipase (73-393) U/L Urine Color [place] A (YELLOW) Urine Appearance Slightly cloudy A (CLEAR) Urine pH 5.5 (5.0-8.0) Ur Specific [place] >= 1.030 (1.008-1.030) Urine Protein Negative (NEGATIVE) mg/dL Urine Glucose (UA) Negative (NEGATIVE) mg/dL Urine Ketones Negative (NEGATIVE) mg/dL Urine Occult Blood Negative (NEGATIVE) Urine Nitrite Negative (NEGATIVE) Urine Bilirubin Negative (NEGATIVE) Urine Urobilinogen 0.2 (0.2-1.0) EU/dL Ur Leukocyte Esterase Negative (NEGATIVE) Urine RBC 5-10 H (0-5) Urine WBC 0-5 (0-5) Ur Epithelial Cells Few Amorphous Sediment Few Urine Bacteria Not seen Urine Mucus Rare 08/31/19 08/31/19 Range/Units 21:15 21:15 WBC (4.5-11.0) K/uL RBC (3.30-5.50) M/uL Hgb (12.0-15.0) g/dL Hct (36.0-48.0) % MCV (80-98) fL MCH (27-31) pg MCHC (32-36) % Plt Count (150-400) K/uL Neut % (Auto) (36-66) % Lymph % (Auto) (24-44) % [place] % (Auto) (2-6) % Eos % (Auto) (2-4) % Baso % (Auto) (0-1) % Sodium (140-148) mmol/L Potassium (3.6-5.2) mmol/L Chloride (100-108) mmol/L Carbon Dioxide (21-32) mmol/L Anion Gap (5.0-14.0) mmol/L BUN (7-18) mg/dL Creatinine (0.6-1.0) mg/dL Est Cr Clr Drug Dosing mL/min Estimated GFR (MDRD) (>60) Glucose (74-106) mg/dL Calcium (8.5-10.1) mg/dL Total Bilirubin (0.2-1.0) mg/dL AST (15-37) U/L ALT (12-78) U/L Alkaline Phosphatase (46-116) U/L C-Reactive Protein 0.88 H (0.0-0.3) mg/dL Total Protein (6.4-8.2) g/dL Albumin (3.4-5.0) g/dL Globulin (2.3-3.5) g/dL Albumin/Globulin Ratio (1.2-2.2) Lipase 64 L (73-393) U/L Urine Color (YELLOW) Urine Appearance (CLEAR) Urine pH (5.0-8.0) Ur Specific [place] (1.008-1.030) Urine Protein (NEGATIVE) mg/dL Urine Glucose (UA) (NEGATIVE) mg/dL Urine Ketones (NEGATIVE) mg/dL Urine Occult Blood (NEGATIVE) Urine Nitrite (NEGATIVE) Urine Bilirubin (NEGATIVE) Urine Urobilinogen (0.2-1.0) EU/dL Ur Leukocyte Esterase (NEGATIVE) Urine RBC (0-5) Urine WBC (0-5) Ur Epithelial Cells Amorphous Sediment Urine Bacteria Urine Mucus Meds: Medications Discontinued Medications Generic Name Dose Route Start Last Admin Trade Name Freq PRN Reason Stop Dose Admin Sodium Chloride 1,000 mls @ 999 mls/hr 08/31/19 21:00 08/31/19 21:05 Normal Saline IV 999 mls/hr ASDIRECTED DALE Administration Sodium Chloride 1,000 mls @ 999 mls/hr 08/31/19 21:30 03/22/20 23:07 Normal Saline IV 999 mls/hr ASDIRECTED DALE Administration Sodium Chloride 100 mls @ 3 mls/sec 08/31/19 21:45 08/31/19 22:06 Normal Saline IV 3 mls/sec ASDIRECTED DALE Administration Iopamidol 100 ml 08/31/19 21:45 08/31/19 22:06 Isovue-300 (61%) IV 100 ml . DIRECTED DALE Administration Ondansetron HCl 4 mg 08/31/19 20:55 08/31/19 21:18 Zofran IVPUSH 08/31/19 20:56 4 mg ONETIME ONE Administration Sodium Chloride 10 ml 08/31/19 21:37 08/31/19 22:06 Saline Flush FLUSH 08/31/19 21:38 10 ml ONETIME ONE Administration - Re-Assessments/Exams Free Text/Narrative Re-Assessment/Exam: 08/31/19 23:34 pt had a neg clostrium, her cat scan of the abdoman did not reveal a obstruction , showed evidence of diarheal disease. Pt was quite dehydrated and sghe was given 2 liters of fluid. lipase was normal. 08/31/19 23:36 Departure - Departure Time of Disposition: 00:20 Disposition: Home, Self-Care 01 Condition: Fair Clinical Impression: Dehydration, Acute diarrhea, Hypokalemia - Discharge Information Instructions: Hypokalemia, Food Choices to Help Relieve Diarrhea, Adult, Potassium Content of Foods, Dehydration, Adult Referrals: Danial Coyle MD [Primary Care Provider] - Forms: ED Department Discharge Care Plan Goals: high k foods, avoid alot of fruits other than bananas, eat alot of rice, imodium 2 tabs each am and 1 tab three times daily if persistent diarrhea through the day. appt with Dr Portillo on sun. use probiotic Sepsis Event Note - Evaluation Sepsis Screening Result: No Definite Risk - Focused Exam Date Exam was Performed: 09/04/19 Time Exam was Performed: 07:40
[2019-08-31] MEDS ORDERED: Ondansetron 4 MG/2 ML SDV IVPUSH ONE (20:55)
[2019-08-31] MEDS ORDERED: Sodium Chloride 0.9% 1,000 ML IV SCH ×2 (21:00→21:30)
[2019-08-31] MEDS ORDERED: Sodium Chloride 0.9% 10 ML Syringe FLUSH ONE (21:37)
[2019-08-31] MEDS ORDERED: Sodium Chloride 0.9% 100 ML IV SCH (21:45)
[2019-08-31] MEDS ORDERED: Iopamidol 612 MG/ML 100 ML Bottle IV SCH (21:45)
--- NOTE | 2019-08-31 22:47 | CRLCT ---
INDICATION: Abdominal pain. COMPARISON: CT of the abdomen and pelvis from 07/05/2019 and report of the previous CT of the abdomen and pelvis from 12/04/2018 TECHNIQUE: CT examination of the abdomen and pelvis was performed with the uneventful intravenous administration of 100 cc of Isovue-300 while 3 mm thick axial sections were obtained from the lung bases through the pubic symphysis. Oral contrast was not administered. Please note that all CT scans at this facility use dose modulation, iterative reconstruction, and/or weight-based dosing when appropriate to reduce radiation dose to as low as reasonably achievable. FINDINGS: There is now a moderate amount of fluid throughout the colon, extending from the cecum through the rectum, without dilatation of the colon, nonspecific. This could represent a diarrheal illness. In the abdomen, the liver, spleen, pancreas, and adrenals are normal in appearance. The kidneys are normal in appearance. Clips are again seen in the gall bladder fossa from cholecystectomy. Again seen is moderate dilatation of the common bile duct, measuring up to 9 millimeters in caliber, extending through the pancreatic head, consistent with post cholecystectomy status. The abdominal aorta is normal in caliber with no sign of dilatation. There is no sign of retroperitoneal mass or adenopathy. Again seen are lines of surgical sandip in the gastric fundus consistent with gastric bypass surgery. A small bowel anastomosis is again seen in the left lower abdomen without any associated bowel dilatation. The previously seen prominent dilatation of the small bowel adjacent to the anastomosis has resolved. Multiple other small bowel anastomoses are present in the left upper pelvis and mid pelvis at the midline. The distal stomach and the rest of the loops of small bowel in the abdomen are normal in appearance. Again seen is satisfactory appearance of a midline abdominal incision with no sign of any fluid collection or hernia related to the incision. In the pelvis, the appendix is normal in appearance with no sign of inflammatory process. The loops of small bowel and colon in the pelvis are normal in appearance. The uterus is again seen to have a T-shaped intrauterine device in satisfactory position in the superior fundus. The adnexal regions are normal in appearance. The urinary bladder is normal in appearance. There is no sign of pelvic or inguinal mass or adenopathy. There is no sign of any free air or free fluid in the abdomen or pelvis. The lung bases are clear. Again seen is moderate anterior angulation of the distal 3 coccygeal segments consistent with an old, healed coccygeal fracture. The osseous structures are otherwise normal in appearance for the patient`s age. IMPRESSION: New moderate amount of fluid distributed throughout the entire colon and rectum, nonspecific, possibly related to a diarrheal illness. CT of the abdomen again shows changes of gastric bypass surgery. The previously seen dilated small bowel loop in the area of the anastomosis in the left lower abdomen and upper pelvis is now normal in caliber. Again seen are changes of cholecystectomy with moderate dilatation of the common bile duct consistent with post cholecystectomy status. CT of the pelvis shows multiple other small bowel anastomoses without evidence of obstruction. Satisfactory positioning of a T-shaped intrauterine device. Please note that all CT scans at this facility use dose modulation, iterative reconstruction, and/or weight-based dosing when appropriate to reduce radiation dose to as low as reasonably achievable. Dictated by Ry Bullock MD @ Aug 31 2019 10:32PM Signed by Dr. Ry Bullock @ Aug 31 2019 10:45PM
== END 2019-09-01 00:15 | disposition home or self-care (01) ==
LOC: JP.ED 20:08
DX: E86.0 Dehydration (principal); E87.6 Hypokalemia; R19.7 Diarrhea, unspecified; I10 Essential (primary) hypertension; J45.909 Unspecified asthma, uncomplicated; F32.9 Major depressive disorder, single episode, unspecified; F41.0 Panic disorder [episodic paroxysmal anxiety]; E66.9 Obesity, unspecified; Z68.27 Body mass index [BMI] 27.0-27.9, adult; Z88.8 Allergy status to other drugs, medicaments and biological substances; Z88.2 Allergy status to sulfonamides; Z91.048 Other nonmedicinal substance allergy status; Z79.899 Other long term (current) drug therapy
CPT/HCPCS: 36415; 74177; 80053; 81001; 83690; 85025; 86140; 87493; 96361; 96374; 99284; J2405; J7030; J7050; Q9967

== ENCOUNTER 2020-02-01 12:19 | Observation (INO) | payer OTHER ==
[2020-02-01] MEDS ORDERED: fentaNYL 100 MCG/2 ML SDV IVPUSH ONE (13:19)
[2020-02-01] MEDS ORDERED: Sodium Chloride 0.9% 10 ML Syringe FLUSH PRN (13:19)
[2020-02-01] MEDS ORDERED: Ondansetron 4 MG/2 ML SDV IVPUSH ONE (13:19)
--- NOTE | 2020-02-01 13:24 | EDM.PDOC ---
ED HPI GENERAL MEDICAL PROBLEM - General Chief Complaint: Abdominal Pain Stated Complaint: UPPER ABD PAIN Time Seen by Provider: 02/01/20 13:00 Source of Information: Reports: Patient, Old Records, RN Notes Reviewed History Limitations: Reports: No Limitations - History of Present Illness INITIAL COMMENTS - FREE TEXT/NARRATIVE: 29-year-old female presents emergency department today complaint of abdominal pain, she does have a history of gastric bypass she has had pain for the last 4 days was evaluated at [facility] on 3 days prior CBC CMP lipase all within normal limits CT scan of the abdomen also shows no acute process. She states she he has been having nausea with vomiting feels like she cannot keep any food products down feels like it does get stuck causing epigastric pain has had poor oral intake no fevers - Related Data Allergies Allergy/AdvReac Type Severity Reaction Status Date / Time sumatriptan Allergy Severe Hives Verified 02/01/20 12:37 divalproex sodium Allergy Intermediate Other Verified 02/01/20 12:37 [From Depakote] Sulfa (Sulfonamide Allergy Intermediate Rash Verified 02/01/20 12:37 Antibiotics) sulfamethoxazole Allergy Intermediate Rash Verified 02/01/20 12:37 [From Bactrim] venlafaxine HCl Allergy Intermediate Other Verified 02/01/20 12:37 [From Effexor] adhesive Allergy Mild Rash Verified 02/01/20 12:37 trimethoprim [From Bactrim] Allergy Mild Rash Verified 02/01/20 12:37 Home Meds: Home Meds Albuterol [Ventolin HFA] 2 puff INH Q6H PRN 01/26/14 [History] DULoxetine [Cymbalta] 20 mg PO DAILY 01/26/14 [History] Amitriptyline [Elavil] 25 mg PO BEDTIME 03/13/18 [History] Amylase/Lipase/Protease [Aurora DR 24,000 Unit] 3 cap PO TIDMEALS 06/20/19 [History] Acetaminophen [Tylenol] 500 - 1,500 mg PO Q6H PRN 07/05/19 [History] Acetaminophen [Tylenol Extra Strength] 1,000 mg PO Q8H tablet 07/09/19 [Rx] Cyclobenzaprine [Flexeril] 10 mg PO Q8H PRN #30 tablet 07/09/19 [Rx] Ondansetron [Zofran ODT] 4 mg PO Q4H PRN #30 tab.dis 07/09/19 [Rx] Dicyclomine [Bentyl] 20 mg PO BID 08/31/19 [History] busPIRone [Buspar] 15 mg PO BID 08/31/19 [History] Acetaminophen/Codeine [Tylenol with Codeine No.3 300MG/30MG] 1 tab PO QID PRN 02/01/20 [History] Past Medical History HEENT History: Reports: Other (See Below) Other HEENT History: wears reading glasses Cardiovascular History: Reports: Hypertension Respiratory History: Reports: Asthma, Bronchitis, Recurrent, Pneumonia, Recurrent Gastrointestinal History: Reports: Bowel Obstruction, Cholelithiasis, Chronic Constipation, Chronic Diarrhea, Diverticulosis, Gastritis, GERD, Irritable Bowel Syndrome, Other (See Below) Other Gastrointestinal History: elevated liver enzymes Genitourinary History: Reports: Retention, Urinary, UTI, Recurrent Other Genitourinary History: postop urinary retention 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: Musculoskeletal History: Reports: Back Pain, Chronic, Fracture, Other (See Below) Other Musculoskeletal History: chronic back pain Neurological History: Reports: Headaches, Chronic, Migraines Psychiatric History: Reports: Anxiety, Depression, Emotional Problems, Panic Attack Endocrine/Metabolic History: Reports: Obesity/BMI 30+, Vitamin D Deficiency, Other (See Below) Other Endocrine/Metabolic History: hypoclycemic, vitamin A deficiency, pancreati c insufficiency Hematologic History: Reports: Anemia, B12 Deficiency, Iron Deficiency Dermatologic History: Reports: Other (See Below) Other Dermatologic History: occasional rash - Infectious Disease History Infectious Disease History: Reports: Chicken Pox - Past Surgical History Head Surgeries/Procedures: Reports: None HEENT Surgical History: Reports: None Cardiovascular Surgical History: Reports: None Respiratory Surgical History: Reports: None GI Surgical History: Reports: Bariatric Procedure, Cholecystectomy, EGD, Esophageal Dilatation, Hernia, Abdominal, Lysis of Adhesions, Small Bowel Other GI Surgeries/Procedures: c/s x2 Female Surgical History: Reports: Section, Other (See Below) Other Female Surgeries/Procedures: IUD - paragard Endocrine Surgical History: Reports: None Neurological Surgical History: Reports: None Musculoskeletal Surgical History: Reports: None Dermatological Surgical History: Reports: None Social & Family History - Family History Family Medical History: Noncontributory - Tobacco Use Smoking Status *Q: Never Smoker - Caffeine Use Caffeine Use: Reports: Energy Drinks Other Caffeine Use: zero calorie - Recreational Drug Use Recreational Drug Use: No ED ROS GENERAL - Review of Systems Review Of Systems: See Below Constitutional: Reports: No Symptoms HEENT: Reports: No Symptoms Respiratory: Reports: No Symptoms Cardiovascular: Reports: No Symptoms GI/Abdominal: Reports: Abdominal Pain, Constipation, Difficulty Swallowing, Nausea, Vomiting : Reports: No Symptoms ED EXAM, GI/ABD - Physical Exam Exam: See Below Exam Limited By: No Limitations General Appearance: Alert, WD/WN, No Apparent Distress Respiratory/Chest: No Respiratory Distress GI/Abdominal Exam: Soft, Tender (Epigastric region) Course - Vital Signs Last Recorded V/S: Last Vital Signs Temp 98.4 F 02/01/20 12:41 Pulse 66 02/01/20 12:41 Resp 16 02/01/20 12:41 BP 108/68 02/01/20 12:41 Pulse Ox 99 02/01/20 12:41 - Orders/Labs/Meds Orders: Active Orders 24 hr Category Date Time Status Peripheral IV Care [RC] . DIRECTED Care 02/01/20 13:19 Ordered Sodium Chloride 0.9% [Saline Flush] Med 02/01/20 13:19 Ordered 10 ml FLUSH ASDIRECTED PRN Peripheral IV Insertion Adult [OM.PC] Urgent Oth 02/01/20 13:19 Ordered Medication Orders Sodium Chloride (Saline Flush) 10 ml FLUSH ASDIRECTED PRN PRN Reason: Keep Vein Open Meds: Medications Generic Name Dose Route Start Last Admin Trade Name Freq PRN Reason Stop Dose Admin Sodium Chloride 10 ml 02/01/20 13:19 Saline Flush FLUSH ASDIRECTED PRN Keep Vein Open Discontinued Medications Generic Name Dose Route Start Last Admin Trade Name Freq PRN Reason Stop Dose Admin Fentanyl 50 mcg 02/01/20 13:19 Sublimaze IVPUSH 02/01/20 13:20 ONETIME ONE Ondansetron HCl 4 mg 02/01/20 13:19 Zofran IVPUSH 02/01/20 13:20 ONETIME ONE Departure - Departure Time of Disposition: 13:24 Disposition: Admitted As Inpatient 68 Condition: Fair Clinical Impression: Epigastric pain, Bariatric surgery status - Discharge Information Referrals: PCP,None [Primary Care Provider] - Sepsis Event Note (ED) - Evaluation Sepsis Screening Result: No Definite Risk - Focused Exam Vital Signs: Vital Signs Temp Pulse Resp BP Pulse Ox 02/01/20 12:41 98.4 F 66 16 108/68 99 02/01/20 12:35 98.4 F 66 16 108/68 99 - My Orders Last 24 Hours: My Active Orders 02/01/20 13:19 Peripheral IV Care [RC] . DIRECTED Sodium Chloride 0.9% [Saline Flush] 10 ml FLUSH ASDIRECTED PRN Peripheral IV Insertion Adult [OM.PC] Urgent - Assessment/Plan Last 24 Hours: My Active Orders 02/01/20 13:19 Peripheral IV Care [RC] . DIRECTED Sodium Chloride 0.9% [Saline Flush] 10 ml FLUSH ASDIRECTED PRN Peripheral IV Insertion Adult [OM.PC] Urgent Plan: Assessment Acuity = acute Site and laterality = epigastric pain complicated patient with history of gastric bypass Etiology = unknown Manifestations = none Location of injury = Home Lab values = none Plan Call discussed case Dr. Portillo at 1315 he kindly agreed to come and evaluate the patient in the hospital plan for EGD with possible dilatation in the morning This note was dictated using [employer] voice recognition software please call with any questions on syntax or grammar.
[2020-02-01] MEDS ORDERED: Ondansetron 4 MG/2 ML SDV IVPUSH PRN (13:28)
[2020-02-01] MEDS ORDERED: fentaNYL 100 MCG/2 ML SDV IVPUSH PRN (13:28)
[2020-02-01] MEDS ORDERED: Albuterol 8 GM Inhaler INH PRN (13:29)
[2020-02-01] MEDS ORDERED: Cyclobenzaprine 10 MG Tab PO PRN (13:29)
[2020-02-01] MEDS ORDERED: MVI, Adult with Vitamin K 10 ML, Chromium/Copper/Mang/Selen/Zn 1 ML, Thiamine 200 MG in... IV ONE ×4 (13:45)
[2020-02-01] MEDS ORDERED: AMYLASE PO SCH (17:00)
[2020-02-01] MEDS ORDERED: PROTEASE PO SCH (17:00)
[2020-02-01] MEDS ORDERED: LIPASE PO SCH (17:00)
[2020-02-01] MEDS: CREON 36000 UNIT PO SCH ×2 (18:07→21:34)
[2020-02-01] MEDS ORDERED: busPIRone 10 MG Tab PO SCH (21:00)
[2020-02-01] MEDS ORDERED: DICYCLOMINE 20 MG PO SCH (21:00)
[2020-02-01] MEDS ORDERED: Amitriptyline 25 MG Tab PO SCH (21:00)
[2020-02-01] MEDS: Dicyclomine 10 MG Cap PO SCH (21:39)
[2020-02-01] MEDS: Acetaminophen 325 MG Tab PO PRN (21:39)
[2020-02-02] MEDS: Dextrose 5%-Lactated Ringers 1,000 ML IV SCH ×3 (00:01→13:47)
[2020-02-02] MEDS: CREON 36000 UNIT PO SCH ×3 (05:24→13:41)
--- NOTE | 2020-02-02 08:24 | PCM.HP.2 ---
H&P History of Present Illness - General Date of Service: 02/02/20 Admit Problem/Dx: Admission Diagnosis/Problem Admission Diagnosis/Problem Abdominal pain Source of Information: Patient - History of Present Illness Onset of Symptoms: Reports: Gradual (5 days of mid epigastric abdominal pain that radiates down into upper abdomen. ) Location: Reports: Abdomen Quality: Reports: Ache, Burning, Stabbing, Throbbing Severity: Mild Improves with: Reports: None Worsens with: Reports: Other (taking her pills - food is getting stuck and/or going down slowly. ) Associated Symptoms: Reports: Other (nausea) 0 Pain Score (Numeric/FACES): 2 - Related Data Allergies/Adverse Reactions: Allergies Allergy/AdvReac Type Severity Reaction Status Date / Time sumatriptan Allergy Severe Hives Verified 02/01/20 12:37 divalproex sodium Allergy Intermediate Other Verified 02/01/20 12:37 [From Depakote] Sulfa (Sulfonamide Allergy Intermediate Rash Verified 02/01/20 12:37 Antibiotics) sulfamethoxazole Allergy Intermediate Rash Verified 02/01/20 12:37 [From Bactrim] venlafaxine HCl Allergy Intermediate Other Verified 02/01/20 12:37 [From Effexor] adhesive Allergy Mild Rash Verified 02/01/20 12:37 trimethoprim [From Bactrim] Allergy Mild Rash Verified 02/01/20 12:37 Home Medications: Home Meds Albuterol [Ventolin HFA] 2 puff INH Q6H PRN 01/26/14 [History] DULoxetine [Cymbalta] 20 mg PO DAILY 01/26/14 [History] Amitriptyline [Elavil] 25 mg PO BEDTIME 03/13/18 [History] Amylase/Lipase/Protease [Aurora DR 24,000 Unit] 3 cap PO TIDMEALS 06/20/19 [History] Acetaminophen [Tylenol] 500 - 1,500 mg PO Q6H PRN 07/05/19 [History] Acetaminophen [Tylenol Extra Strength] 1,000 mg PO Q8H tablet 07/09/19 [Rx] Cyclobenzaprine [Flexeril] 10 mg PO Q8H PRN #30 tablet 07/09/19 [Rx] Ondansetron [Zofran ODT] 4 mg PO Q4H PRN #30 tab.dis 07/09/19 [Rx] Dicyclomine [Bentyl] 20 mg PO BID 08/31/19 [History] Acetaminophen/Codeine [Tylenol with Codeine No.3 300MG/30MG] 1 tab PO QID PRN 02/01/20 [History] Past Medical History HEENT History: Reports: Other (See Below) Other HEENT History: wears reading glasses Cardiovascular History: Reports: Hypertension Respiratory History: Reports: Asthma, Bronchitis, Recurrent, Pneumonia, Recurrent Gastrointestinal History: Reports: Bowel Obstruction, Cholelithiasis, Chronic Constipation, Chronic Diarrhea, Diverticulosis, Gastritis, GERD, Irritable Bowel Syndrome, Other (See Below) Other Gastrointestinal History: elevated liver enzymes Genitourinary History: Reports: Retention, Urinary, UTI, Recurrent Other Genitourinary History: postop urinary retention 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: Musculoskeletal History: Reports: Back Pain, Chronic, Fracture, Other (See Below) Other Musculoskeletal History: chronic back pain Neurological History: Reports: Headaches, Chronic, Migraines Psychiatric History: Reports: Anxiety, Depression, Emotional Problems, Panic Attack Endocrine/Metabolic History: Reports: Obesity/BMI 30+, Vitamin D Deficiency, Other (See Below) Other Endocrine/Metabolic History: hypoclycemic, vitamin A deficiency, pancreatic insufficiency Hematologic History: Reports: Anemia, B12 Deficiency, Iron Deficiency Dermatologic History: Reports: Other (See Below) Other Dermatologic History: occasional rash - Infectious Disease History Infectious Disease History: Reports: Chicken Pox - Past Surgical History Head Surgeries/Procedures: Reports: None HEENT Surgical History: Reports: None Cardiovascular Surgical History: Reports: None Respiratory Surgical History: Reports: None GI Surgical History: Reports: Bariatric Procedure, Cholecystectomy, EGD, Esophageal Dilatation, Hernia, Abdominal, Lysis of Adhesions, Small Bowel Other GI Surgeries/Procedures: c/s x2 Female Surgical History: Reports: Section, Other (See Below) Other Female Surgeries/Procedures: IUD - paragard Endocrine Surgical History: Reports: None Neurological Surgical History: Reports: None Musculoskeletal Surgical History: Reports: None Dermatological Surgical History: Reports: None Social & Family History - Family History Family Medical History: Noncontributory - Tobacco Use Smoking Status *Q: Never Smoker - Caffeine Use Caffeine Use: Reports: Energy Drinks Other Caffeine Use: zero calorie - Recreational Drug Use Recreational Drug Use: No H&P Review of Systems - Review of Systems: Review Of Systems: Comprehensive ROS is negative, except as noted in HPI. Exam - Exam Exam: See Below - Vital Signs Vital Signs: Last Vital Signs Temp 97.6 F 02/02/20 07:59 Pulse 60 02/02/20 07:59 Resp 16 02/02/20 07:59 BP 107/60 02/02/20 07:59 Pulse Ox 95 02/02/20 07:59 Weight: 175 lb 6.4 oz - Exam Quality Assessment: DVT Prophylaxis General: Lethargic HEENT: PERRLA, Hearing Intact Neck: Supple Lungs: Clear to Auscultation, Normal Respiratory Effort Cardiovascular: Regular Rate, Regular Rhythm GI/Abdominal Exam: Soft, Non-Tender, No Distention (Female) Exam: Deferred Rectal (Female) Exam: Deferred Back Exam: Normal Inspection, Full Range of Motion Extremities: Normal Inspection, Normal Range of Motion Skin: Warm, Dry, Intact Neurological: Cranial Nerves Intact Neuro Extensive - Mental Status: Oriented x3 (very sleepy) Neuro Extensive - Motor, Sensory, Reflexes: CN II-XII Intact Psychiatric: Other (as above very sleepy.) - Patient Data Lab Results Last 24 hrs: Laboratory Results - last 24 hr 02/01/20 Range/Units 20:52 SARS Virus RNA (PCR) Negative (NEGATIVE) Sepsis Event Note - Evaluation Sepsis Screening Result: No Definite Risk - Focused Exam Vital Signs: Vital Signs Temp Pulse Resp BP Pulse Ox 02/02/20 07:59 97.6 F 60 16 107/60 95 02/02/20 03:48 96.3 F L 51 L 16 96/49 L 99 02/01/20 22:33 96.7 F L 61 14 98/62 96 - Problem List (1) Epigastric pain SNOMED Code(s): 49165380 ICD Code: R10.13 - EPIGASTRIC PAIN Status: Acute Current Visit: Yes Problem List Initiated/Reviewed/Updated: Yes Orders Last 24hrs: Active Orders 24 hr Category Date Time Status Patient Status [ADT] Routine ADT 02/01/20 13:25 Active Height and Weight [RC] DAILY Care 02/01/20 13:25 Active Intake and Output [RC] QSHIFT Care 02/01/20 13:28 Active Oxygen Therapy [RC] PRN Care 02/01/20 13:25 Active Peripheral IV Care [RC] . DIRECTED Care 02/01/20 13:19 Active RT Post Treatment Assessment [RC] Click to Edit Care 02/01/20 13:32 Active Up ad Angie [RC] ASDIRECTED Care 02/01/20 13:25 Active VTE/DVT Education [RC] Per Unit Routine Care 02/01/20 13:25 Active Verify Patient Consent Obtain [RC] ASDIRECTED Care 02/02/20 07:29 Active Vital Signs [RC] Q4H Care 02/01/20 13:25 Active Clear Liquid Diet [DIET] Diet 02/01/20 Dinner Active NPO After Midnight [Nothing per Oral After Midnight Diet 02/02/20 Breakfast Active Diet] [DIET] Acetaminophen [TylenoL] Med 02/01/20 13:29 Active 650 mg PO Q6H PRN Albuterol [Ventolin HFA] Med 02/01/20 13:29 Active 0 gm INH Q6H PRN Amitriptyline [Elavil] Med 02/01/20 21:00 Active 25 mg PO BEDTIME Cyclobenzaprine [Flexeril] Med 02/01/20 13:29 Active 10 mg PO Q8H PRN DULoxetine [Cymbalta] Med 02/02/20 09:00 Active 20 mg PO DAILY Dextrose 5%-Lactated Ringers 1,000 ml Med 02/01/20 16:15 Active IV ASDIRECTED Dicyclomine [Bentyl] Med 02/01/20 21:00 Active 20 mg PO BID Glycopyrrolate Med 02/02/20 13:00 Once 0.4 mg IVPUSH ONETIME ONE Ondansetron [Zofran] Med 02/01/20 13:28 Active 4 mg IVPUSH Q4H PRN Patient's Own Medication [Ptom] Med 02/01/20 18:00 Active 2 each PO 5XDAY Sodium Chloride 0.9% [Saline Flush] Med 02/01/20 13:19 Active 10 ml FLUSH ASDIRECTED PRN fentaNYL [Sublimaze] Med 02/01/20 13:28 Active 50 mcg IVPUSH Q2H PRN Peripheral IV Insertion Adult [OM.PC] Urgent Oth 02/01/20 13:19 Ordered Sequential Compression Device [OM.PC] Routine Oth 02/01/20 17:43 Ordered Resuscitation Status Routine Resus Stat 02/01/20 13:25 Ordered Medication Orders Acetaminophen (Tylenol) 650 mg PO Q6H PRN PRN Reason: Pain Last Admin: 02/01/20 21:39 Dose: 650 mg Documented by: STACEY Albuterol (Ventolin Hfa) 0 gm INH Q6H PRN PRN Reason: Wheezing Amitriptyline HCl (Elavil) 25 mg PO BEDTIME [facility] Last Admin: 02/01/20 21:39 Dose: 25 mg Documented by: STACEY Cyclobenzaprine HCl (Flexeril) 10 mg PO Q8H PRN PRN Reason: Muscle Spasm Dicyclomine HCl (Bentyl) 20 mg PO BID [facility] Last Admin: 02/01/20 21:39 Dose: 20 mg Documented by: STACEY Duloxetine HCl (Cymbalta) 20 mg PO DAILY [facility] Fentanyl (Sublimaze) 50 mcg IVPUSH Q2H PRN PRN Reason: Pain (severe 7-10) Glycopyrrolate (Glycopyrrolate) 0.4 mg IVPUSH ONETIME ONE Stop: 02/02/20 13:01 Dextrose/Lactated Ringer's (Dextrose 5%-Lactated Ringers) 1,000 mls @ 125 mls/hr IV ASDIRECTED [facility] Last Admin: 02/02/20 07:56 Dose: 125 mls/hr Documented by: Infusion: 02/02/20 07:56 Dose: 125 mls/hr Documented by: Admin: 02/02/20 00:01 Dose: 125 mls/hr Documented by: STACEY Ondansetron HCl (Zofran) 4 mg IVPUSH Q4H PRN PRN Reason: Nausea/Vomiting Last Admin: 02/01/20 18:31 Dose: 4 mg Documented by: LEIGHANN Simon 36,000 Unit (Cap (Ptom)) 2 each PO 5XDAY [facility] Last Admin: 02/02/20 05:24 Dose: Not Given Documented by: Admin: 02/01/20 21:34 Dose: Not Given Documented by: Admin: 02/01/20 18:07 Dose: Not Given Documented by: LEIGHANN Sodium Chloride (Saline Flush) 10 ml FLUSH ASDIRECTED PRN PRN Reason: Keep Vein Open Assessment: Mid Epigastric Pain Dysphagia Plan: EGD with possible dilation and biopsies Plan Discharge after EGd. Mica KAMARA C - Mortality Measure Prognosis:: Good
[2020-02-02] MEDS ORDERED: DULoxetine 20 MG Cap PO SCH (09:00)
[2020-02-02] MEDS ORDERED: Propofol 200 MG/20 ML SDV ONE (09:21)
[2020-02-02] MEDS ORDERED: fentaNYL 100 MCG/2 ML SDV ONE (09:21)
[2020-02-02] MEDS ORDERED: Midazolam 1 MG/ML 2 ML SDV ONE (09:21)
[2020-02-02] MEDS: Dicyclomine 10 MG Cap PO SCH (09:23)
[2020-02-02] MEDS: Glycopyrrolate 0.2 MG/ML 2 ML SDV IVPUSH ONE ×2 (11:08→13:37)
[2020-02-02] MEDS ORDERED: Pantoprazole 40 MG Vial IVPUSH ONE (11:33)
[2020-02-02] MEDS ORDERED: Hyoscyamine 0.125 MG Tab.SL SL PRN (12:19)
[2020-02-02] MEDS: Acetaminophen 325 MG Tab PO PRN (14:21)
[2020-02-02] MEDS ORDERED: Pantoprazole 40 MG Vial IV SCH (23:00)
--- NOTE | 2020-02-25 16:18 | DISCH ---
FINAL DIAGNOSIS: Epigastric pain and dysphagia, status post Karla-en-Y gastric bypass. SECONDARY DIAGNOSES: 1. History of asthma. 2. History of anxiety and depression. 3. History of irritable bowel syndrome. 4. History of cholelithiasis. 5. History of bowel obstruction. 6. History of chronic back pain. OPERATIVE PROCEDURE: Done on 02/02/2020, upper GI endoscopy with biopsy of gastric pouch with CLOtest. SUMMARY: This is a 29-year-old status post Karla-en-Y gastric bypass, presenting with a several day history of epigastric pain and some dysphagia. She is presently not on any antisecretory medication. She had been on Zofran, Ventolin, and Creon for other GI issues. After admission with hydration, the patient underwent upper endoscopy on 02/02/2020, this showed minimal pouch gastritis. CLOtest was obtained which was negative. The plan will be to send the patient home on a 30 day course of Protonix. She will be following up with Mica Greco in [facility] in roughly 2 weeks. Otherwise, continue the Zofran, Ventolin, and Creon as previously noted.
--- NOTE | 2020-02-25 16:39 | OR ---
DATE OF PROCEDURE: 02/02/2020 SURGEON: Ab Portillo MD PREOPERATIVE DIAGNOSIS: Epigastric pain and dysphagia, status post Karla-en-Y gastric bypass. POSTOPERATIVE DIAGNOSES: 1. History of hypertension. 2. History of asthma and bronchitis. 3. History of previous bowel obstruction. 4. History of cholelithiasis, status post cholecystectomy. 5. Irritable bowel syndrome. 6. Anxiety and depression. OPERATIVE PROCEDURE: Upper gastrointestinal endoscopy with biopsies of gastric pouch for CLOtest. INDICATION FOR PROCEDURE: This is a 29-year-old status post Karla-en-Y gastric bypass, presenting with several-day history of epigastric pain along with some dysphagia. The patient presently is on Creon for some perceived pancreatic exocrine insufficiency, Bentyl for spasm in the bowel, and Zofran for nausea. Presently not on any antisecretory medication. The plan is to proceed with upper GI endoscopy with dilation and/or biopsies as indicated. Potential risks, including bleeding and perforation were discussed, and the patient wishes to proceed. DETAILS OF PROCEDURE: The patient was taken to the operating room and placed in the left lateral decubitus position. IV sedation was administered, after which the upper GI endoscope was passed orally through the length of the esophagus and into the gastric pouch, from there through the gastrojejunostomy roughly 20 cm into the Karla limb. Findings included a very minimal pouch gastritis. This was associated with some slight redness in the gastric pouch. There were no marginal ulcers or significant stricturing noted. Remainder of the examination was unremarkable. At this point, biopsies were obtained from the gastric pouch and sent for CLOtest for H pylori. Minimal bleeding from the biopsy sites and the procedure was then concluded. The plan will be to have the patient discharged home later today. We will continue her present GI medications Zofran, Bentyl, and Creon, and add Protonix 40 mg a day for the next month, and followup will be in 6 weeks. bA Portillo MD /[id number]
== END 2020-02-02 16:00 | disposition home or self-care (01) ==
LOC: JP.ED 12:19 → JP.MS 13:25
PROVIDERS: ADMIT Surgery; ATTEND Surgery
DX: R10.13 Epigastric pain (principal); R13.10 Dysphagia, unspecified; I10 Essential (primary) hypertension; J45.909 Unspecified asthma, uncomplicated; E66.9 Obesity, unspecified; K58.9 Irritable bowel syndrome, unspecified; G89.29 Other chronic pain; M54.2 Cervicalgia; F41.9 Anxiety disorder, unspecified; F32.9 Major depressive disorder, single episode, unspecified; Z88.2 Allergy status to sulfonamides; Z88.1 Allergy status to other antibiotic agents; Z88.8 Allergy status to other drugs, medicaments and biological substances; Z79.899 Other long term (current) drug therapy; Z87.19 Personal history of other diseases of the digestive system; Z98.890 Other specified postprocedural states; Z90.49 Acquired absence of other specified parts of digestive tract; Z98.84 Bariatric surgery status; Z68.28 Body mass index [BMI] 28.0-28.9, adult
CPT/HCPCS: 43239; 87081; 87635; 96361; 96365; 96366; 96375; 96376; 99284; A9270; C9113; G0378; J2250; J2405; J2704; J3010; J3411; J3490; J7120; J7121; 96374; U0002

== ENCOUNTER 2021-05-26 05:46 | Inpatient (IN) | payer OTHER ==
[~2021-05-26 05:46] MED LIST: Acetaminophen 500 MG Tab PO ONE; Celecoxib 200 MG Cap PO ONE
[2021-05-26] MEDS ORDERED: Dextrose 5%-Lactated Ringers 1,000 ML IV SCH (06:00)
[2021-05-26] MEDS ORDERED: Bupivacaine 0.5% 50 ML MDV ONE (06:34)
[2021-05-26] MEDS ORDERED: Lidocaine 1% with EPINEPHrine 1:100,000 50 ML MDV ONE (06:34)
[2021-05-26] MEDS ORDERED: Meropenem 500 MG SDV ONE (06:58)
[2021-05-26] MEDS ORDERED: Succinylcholine 200 MG/10 ML MDV ONE (07:15)
[2021-05-26] MEDS ORDERED: fentaNYL 250 MCG/5 ML SDV ONE (07:15)
[2021-05-26] MEDS ORDERED: Propofol 200 MG/20 ML SDV ONE (07:15)
[2021-05-26] MEDS ORDERED: Glycopyrrolate 0.2 MG/ML 5 ML MDV ONE (07:15)
[2021-05-26] MEDS ORDERED: Neostigmine Methylsulfate 1 MG/ML 5 ML Syringe ONE (07:15)
[2021-05-26] MEDS ORDERED: ceFAZolin 2 GM in Premix Bag 1 BAG IV ONE (07:15)
[2021-05-26] MEDS ORDERED: Ondansetron 4 MG/2 ML SDV ONE (07:15)
[2021-05-26] MEDS ORDERED: Dexamethasone 4 MG/ML SDV ONE (07:15)
[2021-05-26] MEDS ORDERED: Rocuronium 50 MG/5 ML Vial ONE (07:15)
[2021-05-26] MEDS ORDERED: Ketamine 17 MG in Sodium Chloride 0.9% 19.83 ML IV SCH (07:30)
[2021-05-26] MEDS ORDERED: Ketamine 500 MG/5 ML MDV IV SCH (07:30)
[2021-05-26] MEDS ORDERED: Ropivacaine 38 ML, dexAMETHasone 8 MG, EPINEPHrine 0.4 MG, Sodium Chloride 0.9% 39.6 ML NERVRT SCH ×4 (07:30)
[2021-05-26] MEDS ORDERED: Naloxone 0.4 MG/ML SDV IVPUSH PRN (08:43)
[2021-05-26] MEDS ORDERED: HYDROmorphone/Normal Saline 15 MG/30 ML PCA IV PRN (08:43)
[2021-05-26] MEDS ORDERED: Naloxone 0.4 MG/ML SDV IV PRN (09:00)
[2021-05-26] MEDS ORDERED: Cyclobenzaprine 10 MG Tab PO PRN (09:51)
[2021-05-26] MEDS ORDERED: Albuterol/Ipratropium 3.0-0.5 MG/3 ML Neb Soln INH PRN (09:53)
[2021-05-26] MEDS ORDERED: Labetalol 20 MG/4 ML Syringe IVPUSH PRN (10:00)
[2021-05-26] MEDS ORDERED: Ondansetron 4 MG/2 ML SDV IVPUSH PRN (10:00)
[2021-05-26] MEDS ORDERED: Acetaminophen 500 MG Tab PO PRN (10:00)
[2021-05-26] MEDS ORDERED: Metoclopramide 10 MG/2 ML SDV IVPUSH PRN (10:00)
[2021-05-26] MEDS: Dextrose 5%-Lactated Ringers 1,000 ML IV SCH ×2 (10:00→22:16)
[2021-05-26] MEDS ORDERED: hydrOXYzine HCL 100 MG/2 ML SDV IM PRN (10:00)
[2021-05-26] MEDS ORDERED: diphenhydrAMINE 50 MG/ML SDV IVPUSH PRN (10:00)
[2021-05-26] MEDS ORDERED: Scopolamine 1.5 MG Transdermal Patch TOP SCH (12:00)
[2021-05-26] MEDS ORDERED: DULoxetine 20 MG Cap PO SCH (14:00)
[2021-05-26] MEDS ORDERED: Spironolactone 25 MG Tab PO SCH (14:00)
[2021-05-26] MEDS ORDERED: Pantoprazole 40 MG Vial IVPUSH SCH (14:00)
[2021-05-26] MEDS ORDERED: Furosemide 40 MG Tab PO SCH (14:00)
[2021-05-26] MEDS: Acetaminophen 500 MG Tab PO SCH ×2 (14:04→22:06)
[2021-05-26] MEDS: cefOXitin 2 GM in Sodium Chloride 0.9% 50 ML IV SCH ×2 (14:06→19:40)
[2021-05-26] MEDS ORDERED: MVI, Adult with Vitamin K 10 ML, Thiamine 200 MG, Zinc/Copper/Manganese/Selenium 1 ML i... IV SCH ×4 (16:00)
[2021-05-26] MEDS: Heparin Sodium 5,000 Units/ML Vial SUBCUT SCH (17:23)
[2021-05-26] MEDS ORDERED: Amphetamine/Dextroamphetamine Salts 10 MG Tab PO ONE (17:28)
[2021-05-26] MEDS: DULoxetine 20 MG Cap PO SCH (22:06)
[2021-05-26] MEDS: Furosemide 40 MG Tab PO SCH (22:06)
[2021-05-26] MEDS: Spironolactone 25 MG Tab PO SCH (22:06)
[2021-05-26] MEDS: Gabapentin 100 MG Cap PO SCH (22:06)
[2021-05-26] MEDS ORDERED: Amitriptyline 25 MG Tab PO ONE (22:30)
[2021-05-27] MEDS: cefOXitin 2 GM in Sodium Chloride 0.9% 50 ML IV SCH ×2 (02:32→08:05)
[2021-05-27] MEDS ORDERED: Iopamidol 612 MG/ML 50 ML SDV PO STA (03:13)
[2021-05-27] MEDS: Dextrose 5%-Lactated Ringers 1,000 ML IV SCH ×3 (03:57→23:11)
[2021-05-27] MEDS: Acetaminophen 500 MG Tab PO SCH ×3 (06:04→21:36)
[2021-05-27] MEDS: Heparin Sodium 5,000 Units/ML Vial SUBCUT SCH ×2 (06:05→17:34)
[2021-05-27] MEDS ORDERED: Ondansetron 4 MG Tab.DIS PO PRN (06:47)
[2021-05-27] MEDS ORDERED: hydrOXYzine HCl 25 MG Tab PO PRN (06:52)
[2021-05-27] MEDS: Bisacodyl 5 MG Tab PO SCH ×2 (08:14→21:34)
[2021-05-27] MEDS: Docusate Sodium 100 MG Cap PO SCH ×2 (08:14→21:34)
[2021-05-27] MEDS: Celecoxib 200 MG Cap PO SCH ×2 (08:19→21:34)
[2021-05-27] MEDS: LISDEXAMFETAMINE PO SCH (08:25)
[2021-05-27] MEDS: SCOPOLAMINE PATCH CHECK TOP SCH (08:51)
--- NOTE | 2021-05-27 09:03 | PN ---
DATE OF SERVICE: 05/27/2021 SUBJECTIVE: Gudelia is postop day 1. Upper GI was normal. Oral intake 780, output 1950. Cruz has been discontinued. She has been using her ENTERTAINMENT DIRECTOR and has been extremely sleepy. Also, has had a Flexeril. REVIEW OF SYSTEMS: Remainder of review of systems negative for any pertinent positives and negatives. OBJECTIVE: GENERAL: Gudelia Gramajo is a 31-year-old female, who has a difficult time staying awake. VITAL SIGNS: TPR is 96.3, 90, 16, blood pressure 107/63. HEENT: Negative. NECK: Supple. HEART: Regular rate and rhythm. LUNGS: Clear. ABDOMEN: Dressing dry and intact. Abdominal binder is on. EXTREMITIES: Without peripheral edema. ASSESSMENT: Exploratory laparotomy with lysis of adhesions. 1. Small bowel resection. 2. Separate small bowel strictureplasty. 3. Reduction of focal small bowel volvulus. 4. Excision of peritoneal nodule overlying omentum. 5. Repair of incarcerated incisional hernia. 6. Placement of Interceed mesh. POSTOPERATIVE DIAGNOSES: 1. Partial small bowel obstruction secondary to stricture at the jejunojejunostomy. 2. Separate stricture, distal common limb of the small bowel. 3. Incarcerated incisional hernia, 1 cm. 4. Focal small bowel volvulus. 5. Peritoneal implant 1 cm overlying omentum. Date of procedure 05/25/2021. Surgeon: Ab Portillo MD PLAN: 1. Decrease IV to 100 mL/hr. 2. Step 2 gastric bypass diet without cereal. 3. Discontinue ENTERTAINMENT DIRECTOR. 4. Discontinue telemetry. 5. Discontinue continuous pulse ox. 6. Oxycodone 5 mg q.4 hours p.r.n. pain. 7. Atarax 50 mg q.4 hours p.r.n. additional pain. Dressing off. May shower. 8. Colace 100 mg p.o. b.i.d. 9. Dulcolax 2 tabs p.o. b.i.d. Gudelia did not bring her Vyvanse in and takes Vyvanse 70 mg and Adderall 10 mg at 1400 if needed for binge eating and emotional eating. We will hold the Adderall while in the hospital and the Vyvanse not available from hospital pharmacy. 1. To continue use of incentive spirometer. 2. Ambulate 6 times daily. 3. We will evaluate p.r.n. or in a.m. Mica Greco PA-C /[id number]
--- NOTE | 2021-05-27 09:31 | CR ---
UGI Limited HISTORY: Postbariatric surgery/revision FINDINGS: Patient swallowed water-soluble contrast. Upright views of the abdomen show no evidence of extravasation or obstruction. IMPRESSION: Status post bariatric surgery revision No extravasation or obstruction seen
[2021-05-27] MEDS: oxyCODONE 5 MG Tab PO PRN ×3 (10:09→19:12)
[2021-05-27] MEDS ORDERED: Amphetamine/Dextroamphetamine Salts 10 MG Tab PO SCH (14:00)
[2021-05-27] MEDS ORDERED: Tamsulosin 0.4 MG Cap.ER PO ONE (16:00)
[2021-05-27] MEDS ORDERED: MVI, Adult with Vitamin K 10 ML, Thiamine 200 MG, Zinc/Copper/Manganese/Selenium 1 ML i... IV SCH ×4 (16:00)
[2021-05-27] MEDS: Pantoprazole 40 MG Delayed-Release Granules 1 Packet PO SCH (16:26)
[2021-05-27] MEDS: Spironolactone 25 MG Tab PO SCH (21:34)
[2021-05-27] MEDS: Amitriptyline 25 MG Tab PO SCH (21:35)
[2021-05-27] MEDS: Gabapentin 100 MG Cap PO SCH (21:35)
[2021-05-27] MEDS: DULoxetine 20 MG Cap PO SCH (21:35)
[2021-05-27] MEDS: Furosemide 40 MG Tab PO SCH (21:36)
[2021-05-28] MEDS ORDERED: Tamsulosin 0.4 MG Cap.ER PO ONE (04:00)
[2021-05-28] MEDS: Acetaminophen 500 MG Tab PO SCH ×3 (05:35→21:01)
[2021-05-28] MEDS: Heparin Sodium 5,000 Units/ML Vial SUBCUT SCH (05:36)
[2021-05-28] MEDS: oxyCODONE 5 MG Tab PO PRN ×2 (05:36→16:17)
[2021-05-28] MEDS ORDERED: Magnesium Hydroxide 400 MG/5 ML Susp 30 ML Cup PO ONE (08:45)
[2021-05-28] MEDS ORDERED: Cyanocobalamin (Vitamin B12) 1,000 MCG/ML SDV IM ONE (09:00)
[2021-05-28] MEDS: Celecoxib 200 MG Cap PO SCH ×2 (09:14→21:00)
[2021-05-28] MEDS: Docusate Sodium 100 MG Cap PO SCH ×2 (09:15→21:00)
[2021-05-28] MEDS: Bisacodyl 5 MG Tab PO SCH ×2 (09:15→21:00)
[2021-05-28] MEDS: LISDEXAMFETAMINE PO SCH (09:17)
[2021-05-28] MEDS: SCOPOLAMINE PATCH CHECK TOP SCH (09:18)
[2021-05-28] MEDS ORDERED: Magnesium Hydroxide 400 MG/5 ML Susp 30 ML Cup PO PRN (11:00)
[2021-05-28] MEDS: Pantoprazole 40 MG Delayed-Release Granules 1 Packet PO SCH (16:16)
[2021-05-28] MEDS: DULoxetine 20 MG Cap PO SCH (20:59)
[2021-05-28] MEDS: Furosemide 40 MG Tab PO SCH (20:59)
[2021-05-28] MEDS: Gabapentin 100 MG Cap PO SCH (21:00)
[2021-05-28] MEDS: Spironolactone 25 MG Tab PO SCH (21:00)
[2021-05-28] MEDS: Amitriptyline 25 MG Tab PO SCH (21:00)
[2021-05-29] MEDS: Acetaminophen 500 MG Tab PO SCH (05:25)
[2021-05-29] MEDS: Heparin Sodium 5,000 Units/ML Vial SUBCUT SCH (05:25)
[2021-05-29] MEDS ORDERED: Magnesium Hydroxide 400 MG/5 ML Susp 30 ML Cup PO PRN (07:35)
[2021-05-29] MEDS: LISDEXAMFETAMINE PO SCH (09:50)
[2021-05-29] MEDS: Celecoxib 200 MG Cap PO SCH (09:50)
[2021-05-29] MEDS: Docusate Sodium 100 MG Cap PO SCH (09:51)
[2021-05-29] MEDS: Bisacodyl 5 MG Tab PO SCH (09:51)
--- NOTE | 2021-05-30 11:59 | DISCH ---
FINAL DIAGNOSES: 1. Partial small bowel obstruction secondary to: a. Stricture at jejunojejunostomy. b. Separate stricture of distal common limb of small bowel. 2. Incarcerated incisional hernia. 3. Focal small bowel volvulus. 4. Peritoneal implant overlying omentum. SECONDARY DIAGNOSES: 1. Diarrhea and excessive malabsorption, status post Karla-en-Y gastric bypass. 2. Astigmatism of both eyes. 3. Periodic limb movement disorder. 4. History of iron deficiency anemia. 5. Myalgia. 6. History of rectal prolapse. OPERATIVE PROCEDURE: Done on 05/26, exploratory laparotomy with lysis of adhesions and: 1. Small bowel resection. 2. Separate small bowel stricturoplasty. 3. Reduction of small bowel volvulus and closure of internal hernia. 4. Excision of peritoneal nodule overlying the surface of omentum. 5. Repair of incarcerated incisional hernia. 6. Placement of Interceed mesh to limit recurrent adhesion formation between pelvic and abdominal wall and underlying viscera. SUMMARY: This is a 31-year-old female with a picture of partial small bowel obstruction, status post Karla-en-Y gastric bypass. She has also had excessive malabsorption requiring Creon, and despite that, having multiple loose bowel movements daily. On the day of admission, the above procedures were undertaken. As part of the small bowel resection, her limb lengths were adjusted which provided her somewhere in the range of 250 cm more of common limb which should alleviate the frequent loose bowel movements and malabsorption issues at least to a significant extent. Presently, she is tolerating a step-3 diet. We will continue that until her first appointment which will be with Mica Greco on 06/06/2021. She will be on her usual medications plus Celebrex 200 mg p.o. b.i.d., Tylenol 1 g q.6 h. p.r.n. pain, and we will send her home with 2 doses of milk of magnesia. She is instructed to try to experiment with initially not taking the Creon, and then if she is having recurrence of the loose bowel movements and/or oily stools, to restart the Creon perhaps at a lower dose over time as I suspect there is a reasonable chance that she may not need to have Creon as an ongoing medication. This would be dependent on the status of her pancreatic exocrine function to some extent as well. /[id number]
--- NOTE | 2021-05-30 11:59 | PN ---
DATE OF SERVICE: 05/28/2021 The patient has been afebrile with stable vital signs. Her abdomen is still a little bit distended. She has not moved her bowels as of yet. We will work on bowel movement function today and she will likely be ready for discharge home tomorrow. Ab Portillo MD /[id number]
--- NOTE | 2021-05-30 12:06 | OR ---
DATE OF PROCEDURE: 05/26/2021 SURGEON: Ab Portillo MD PREOPERATIVE DIAGNOSIS: Partial small bowel obstruction. POSTOPERATIVE DIAGNOSES: 1. Partial small bowel obstruction secondary to a stricture and jejunojejunostomy. 2. Separate stricture involving distal common limb of small bowel. 3. Incarcerated incisional hernia. 4. Focal small bowel volvulus. 5. Peritoneal implant overlying omentum. OPERATIVE PROCEDURES: Exploratory laparotomy with: 1. Small bowel resection (05363). 2. Separate small bowel strictureplasty (46533). 3. Reduction of small bowel volvulus and subsequent closure of internal hernia (41556). 4. Excision of peritoneal nodule overlying the omentum (24419). 5. Repair of incarcerated incisional hernia (78667). 6. Placement of Interceed mesh to limit recurrent adhesion formation involving the abdominal wall and adjacent viscera. ANESTHESIA: General. MILLWRIGHT SUPERVISOR: Mica Greco PA-C INDICATIONS FOR PROCEDURE: This is a 31-year-old female presenting with a picture of partial small bowel obstruction. The patient had presented with postprandial crampy abdominal pain. The plan will be to proceed with exploratory laparotomy with release of small bowel obstruction. The patient has quite a bit of diarrhea and malabsorption. Issues related to previous revision of the small bowel to a more distal location, and given this small bowel resection is indicated, we assigned the small bowel to increase the common limb length hopefully to alleviate some of the above-mentioned problems with potential risks otherwise including bleeding, infection, injury to underlying viscera, problems with recurrent bowel obstruction over time, possibility of persistence of the diarrhea, and general malabsorptive state postprocedure were all reviewed, and the patient wishes to proceed. DETAILS OF PROCEDURE: The patient was taken to the operating room and placed in a supine position. After general endotracheal anesthesia was induced, Cruz catheter was inserted, and the abdomen prepped and draped. A midline incision from the umbilicus roughly a handsbreadth toward the xiphoid was made and carried down through the full-thickness abdominal wall. Upon entering peritoneal cavity, some scattered adhesions to the anterior abdominal wall were taken down, and the patient was noted to have a marked narrowing of the point where the Karla limb entered the jejunojejunostomy. This appeared to be the primary site of obstructive symptoms. The patient also had a separate stricture of the common limb roughly 40 to 50 cm proximal to the ileocecal valve. The patient was also noted to have a focal small bowel volvulus with a portion of the biliopancreatic limb having rotated underneath the Karla limb. Bladder was reduced in that area, then closed with a 2-0 silk stitch. At this point, the small bowel was detached from a point where it entered the jejunojejunostomy with the DAKSHA stapler. Roughly 20 cm segment of the small bowel was then resected to allow more adequate location for the reanastomosis. At that point, then the small bowel stricture was identified and antimesenteric border of the bowel at that level, and 60 mm DAKSHA stapler was then placed into the bowel with one arm on each side of the bowel and fired and the common opening then closed transversely with a DAKSHA purple load. The angles of anastomosis were reinforced with some 3-0 Vicryl stitch. There was no mesenteric defect in this case. Upon entering the abdomen, the patient was noted to have a Karla limb of 170 cm and a common limb of 230 cm. The small bowel was then reconstructed such that the Karla limb would be 150 cm and biliopancreatic limb was 50 cm. The region of biliopancreatic limb was 400 cm. Thus, in the process of this, reconstruction of the common limb length was increased by 230 cm, which should provide a significant improvement in her malabsorption symptoms. Secondary anastomosis accomplished with internal firing of DAKSHA 60 mm stapler. Common opening was then closed transversely with the same stapler, and the angles anastomosed, reinforced with 3-0 Vicryl stitch, and the underlying mesenteric defect closed with some 2-0 silk stitch. During the course of the exploration, the patient noted to have a 1 cm peritoneal implant over the omentum. This was excised, sent for histologic evaluation. She was also noted to have a small incisional hernia just above the previous incision. The latter was then repaired prior to the closure. The transversus abdominis plane blocks were then placed at this point, and the Interceed mesh was then placed underneath the incision from there down towards the pelvic abdominal wall and surrounding to limit recurrent adhesion formation to those surfaces and underlying viscera. The midline fascia was then approximated with #2 Vicryl stitch, subcutaneous tissue with 2 layers of 3-0 and 4-0 Vicryl stitch, and fixed to the skin with sandip. The incision was also anesthetized with 1% lidocaine mixed with Marcaine, and the patient was taken to the recovery room in satisfactory condition. Physician patient support assistant, Mica Greco, played an essential role in assisting in this case helping to position the patient, retract structures as needed, as well as suturing and cutting sutures when indicated. Her presence improved patient safety and decreased the operative time. Ab Portillo MD /[id number]
== END 2021-05-29 10:15 | disposition home or self-care (01) | DRG 329 ==
LOC: JP.SDS 05:46 → EDSTATUS 07:15 → JP.MS 08:40
PROVIDERS: ADMIT Surgery; ATTEND Surgery
PROC: 0DS80ZZ Reposition Small Intestine, Open Approach (ICD-10-PCS; principal; 2021-05-26)
PROC: 0DB80ZZ Excision of Small Intestine, Open Approach (ICD-10-PCS; 2021-05-26)
PROC: 0WQF0ZZ Repair Abdominal Wall, Open Approach (ICD-10-PCS; 2021-05-26)
PROC: 0DQ80ZZ Repair Small Intestine, Open Approach (ICD-10-PCS; 2021-05-26)
PROC: 0DBW0ZZ Excision of Peritoneum, Open Approach (ICD-10-PCS; 2021-05-26)
PROC: 3E0M05Z Introduction of Adhesion Barrier into Peritoneal Cavity, Open Approach (ICD-10-PCS; 2021-05-26)
DX: K95.89 Other complications of other bariatric procedure (principal); K56.2 Volvulus; K56.600 Partial intestinal obstruction, unspecified as to cause; K43.0 Incisional hernia with obstruction, without gangrene; K90.9 Intestinal malabsorption, unspecified; G25.9 Extrapyramidal and movement disorder, unspecified; Y84.8 Other medical procedures as the cause of abnormal reaction of the patient, or of later complication, without mention of misadventure at the time of the procedure; H52.203 Unspecified astigmatism, bilateral; D50.9 Iron deficiency anemia, unspecified; M79.10 Myalgia, unspecified site; K62.3 Rectal prolapse; D64.9 Anemia, unspecified; E66.01 Morbid (severe) obesity due to excess calories; E53.8 Deficiency of other specified B group vitamins; K59.00 Constipation, unspecified; K21.9 Gastro-esophageal reflux disease without esophagitis; F41.9 Anxiety disorder, unspecified; F32.A Depression, unspecified; K86.89 Other specified diseases of pancreas; Z98.84 Bariatric surgery status; Z90.49 Acquired absence of other specified parts of digestive tract; Z79.899 Other long term (current) drug therapy; Z91.09 Other allergy status, other than to drugs and biological substances; Z88.8 Allergy status to other drugs, medicaments and biological substances; Z88.2 Allergy status to sulfonamides
CPT/HCPCS: 36415; 74240; 74240-26; 80053; 82306; 82525; 82607; 82728; 82746; 82947; 83735; 84100; 84425; 84590; 84630; 84703; 85027; A9270-GY; C9113; J0171; J0330; J0690; J0694; J1100; J1170; J1644; J2185; J2405; J2704; J2710; J2795; J3010; J3411; J3420; J3490; J7121; Q9967

== ENCOUNTER 2021-06-08 02:18 | Inpatient (IN) | payer OTHER ==
[2021-06-08] MEDS ORDERED: Naloxone 0.4 MG/ML SDV IV PRN (02:40)
[2021-06-08] MEDS ORDERED: HYDROmorphone/Normal Saline 6 MG/30 ML PCA Vial IV PRN (02:40)
[2021-06-08 04:08] LABS: CORONAVIRUS COVID-19 NAA NEGATIVE (NEGATIVE)
[2021-06-08] MEDS: Dextrose 5%-Lactated Ringers 1,000 ML IV SCH ×3 (04:17→22:03)
[2021-06-08] MEDS: Ondansetron 4 MG/2 ML SDV IVPUSH PRN ×2 (04:18→10:59)
[2021-06-08] MEDS ORDERED: Albuterol 8 GM Inhaler INH PRN (07:52)
[2021-06-08] MEDS ORDERED: MVI, Adult with Vitamin K 10 ML, Thiamine 200 MG, Zinc/Copper/Manganese/Selenium 1 ML i... IV ONE ×4 (09:00)
[2021-06-08] MEDS ORDERED: DULoxetine 20 MG Cap PO SCH (09:00)
[2021-06-08] MEDS ORDERED: Spironolactone 25 MG Tab PO SCH (09:00)
--- NOTE | 2021-06-08 09:23 | CR ---
Abdomen 2V AP Flat Upright CLINICAL HISTORY: Partial SBO FINDINGS: No free air is identified. There is a large amount stool throughout the colon. Small intestinal gas pattern is nonspecific. Patient is recent post recent bariatric surgery IMPRESSION: Recent abdominal surgery Moderate retained stool Nonacute intestinal gas pattern
[2021-06-08] MEDS: Pantoprazole 40 MG Vial IVPUSH SCH ×2 (09:25→21:51)
[2021-06-08] MEDS: Bisacodyl 10 MG Supp RECTAL SCH ×2 (10:54→13:49)
--- NOTE | 2021-06-08 12:18 | HP ---
HISTORY OF PRESENT ILLNESS: Gudelia was admitted on 06/07/2021 after being in the emergency department at [facility]. She was transferred by ambulance for partial small bowel obstruction. Gudelia had exploratory laparotomy with small-bowel resection, separate small bowel strictureplasty, reduction of small bowel volvulus, and subsequent closure of internal hernia, excision of peritoneal nodule overlying the omentum, repair of incarcerated incisional hernia on 05/26/2021. She was discharged on 05/29/2021 with no complications. She states she did well until 06/01/2021 and she became constipated and increase in abdominal pain. She was taking Celebrex, Aleve, and ibuprofen for pain. She reports that she developed swollen right eye and some itching from the ibuprofen and Aleve, went to the emergency room, and was given some epinephrine and Vistaril to help with the reaction. Reports she had a large BM 2 days ago on 06/05/2021 and has not had any since. Reports some nausea. No vomiting. Currently, using SR. MERCHANDISE PLANNER for pain control, and this morning reports pain is 4/10 and she voices reports of being extremely tired. REVIEW OF SYSTEMS: HEENT: Negative. NECK: Negative. CHEST: No chest pain, shortness of breath. LUNGS: No cough. ABDOMEN: As above. Pain generalized associated with constipation and nausea. EXTREMITIES: No joint pain or swelling. NEUROLOGIC: Denies any insomnia, depression, or anxiety. SKIN: No rash. Remainder of review of systems negative for any pertinent positives or negatives. HOME MEDICATIONS: See EMR. She has not taken any of her prescription medications since discharge from the hospital. ALLERGIES: SEE EMR. FAMILY HISTORY: Positive for heart disease, alcohol abuse, stroke, mother. Diabetes, heart disease, asthma in maternal grandmother. Stroke and diabetes in paternal grandfather. SOCIAL HISTORY: She is . Does not smoke, drink alcohol. Employed at [employer], [place], [place] and she works in [employer]. PAST SURGICAL HISTORY: Most recent as stated in HPI. Bowel resection on 06/30/2019. section on 07/02/2017. Colonoscopy on 05/24/2020. Correction of gastric bypass in 2019. Gastric bypass in 2011. She had laparoscopic assisted low anterior colon resection on 05/24/2020. Laparoscopic appendectomy at the same time. Laparoscopic cholecystectomy on 09/10/2013, and an EGD on 01/11/2018. CURRENT MEDICATIONS: See EMR. PHYSICAL EXAMINATION: GENERAL: Gudelia is a 31-year-old female. VITAL SIGNS: Height is 5 feet 5 inches, weight 165 pounds. TPR is 98.9, 65, 18, blood pressure 100/67. HEENT: Negative. NECK: Supple. HEART: Regular rate and rhythm. LUNGS: Clear. ABDOMEN: Nondistended, soft, nontender in all 4 quadrants. Sandip intact and are ready to be removed. EXTREMITIES: Without peripheral edema. NEUROLOGIC: Intact. PSYCHIATRIC: Mood and affect, sleepy. ASSESSMENT: Partial small bowel obstruction. PLAN: 1. Discontinue sandip. Apply benzoin and Steri-Strips. 2. Check abdominal flat and upright series ordered for 5 to check at 0400 each a.m. 3. Saline enema. 4. Dulcolax suppository after saline enema, then repeat in 4 hours. 5. Upper GI with water-soluble contrast. Radiologist present for tomorrow, 06/09/2021. 6. Ensure Clear protein supplement 3 times a day. 7. Protonix 40 mg IV b.i.d. 8. May shower. 9. Tylenol 650 mg q.6 hours p.r.n. pain. 10.Check CBC, CMP, mag, phos in a.m. 11.Home medications were restarted: Celebrex, albuterol, amitriptyline, Zyrtec, Neurontin, magnesium, and spironolactone. 12.We will evaluate p.r.n. or in a.m. Mica Greco PA-C /[id number]
[2021-06-08] MEDS: Cetirizine 10 MG Tab PO SCH (12:59)
[2021-06-08] MEDS: Celecoxib 200 MG Cap PO SCH ×2 (13:00→21:52)
[2021-06-08] MEDS: Magnesium Oxide 400 MG Tab PO SCH (13:00)
[2021-06-08] MEDS: DULoxetine 20 MG Cap PO SCH (21:52)
[2021-06-08] MEDS: Spironolactone 25 MG Tab PO SCH (21:52)
[2021-06-08] MEDS: Gabapentin 100 MG Cap PO SCH (21:52)
[2021-06-08] MEDS: Amitriptyline 25 MG Tab PO SCH (21:53)
[2021-06-09] MEDS: Dextrose 5%-Lactated Ringers 1,000 ML IV SCH ×2 (05:28→13:32)
--- NOTE | 2021-06-09 07:46 | PN ---
DATE OF SERVICE: 06/09/2021 SUBJECTIVE: Gudelia reports her pain is controlled. She has had 2 small BMs. Oral intake 1440. Labs this morning; hemoglobin 10, phosphorus is high at 5.3 and magnesium is 1.6. She is scheduled to have an upper GI with small bowel follow-through using water-soluble contrast with Radiology present this a.m. HEENT, negative. No headache or dizziness. Neck negative. Chest, no chest pain, shortness of breath, fast or irregular heart beat. Lungs, denies any cough. Abdomen, pain 0/10, passing flatus, had 2 small BMs. Denies pain. Extremities, negative. Psychiatric, mood and affect good. OBJECTIVE: GENERAL: Gudelia is a pleasant 31-year-old female. VITAL SIGNS: TPR is 97.3, 71, 16, blood pressure 96/51. HEENT: Negative. NECK: Supple. HEART: Regular rate and rhythm. LUNGS: Clear. ABDOMEN: Soft, nontender. Incision looks good. EXTREMITIES: Without peripheral edema. ASSESSMENT: 1. Partial small bowel obstruction. 2. Constipation. 3. Low magnesium. PLAN: 1. Rx magnesium 2 g IV q.6 hours x72 hours. 2. Call Ab Portillo MD when upper GI with small bowel follow-through is completed. Communication order written. 3. Check labs; CBC, CMP and phosphorus in a.m. 4. We will check on insurance coverage for Amitiza, Linzess or Trulance and this will be started as soon as the insurance is looked into. 5. We will evaluate p.r.n. or in a.m. Mica Greco PA-C /[id number]
[2021-06-09] MEDS: Pantoprazole 40 MG Vial IVPUSH SCH ×2 (08:50→21:54)
[2021-06-09] MEDS: Cetirizine 10 MG Tab PO SCH (08:50)
[2021-06-09] MEDS: Celecoxib 200 MG Cap PO SCH ×2 (08:50→21:53)
[2021-06-09] MEDS: Magnesium Oxide 400 MG Tab PO SCH (08:50)
[2021-06-09] MEDS: Acetaminophen 325 MG Tab PO PRN (08:53)
[2021-06-09] MEDS ORDERED: Iopamidol 612 MG/ML 200 ML Bottle ONE (09:03)
[2021-06-09] MEDS: Magnesium Sulfate/Water 2 GM/50 ML BAG IV SCH ×3 (10:35→21:54)
[2021-06-09] MEDS ORDERED: VYVANSE 70 MG PO SCH (11:00)
--- NOTE | 2021-06-09 12:07 | CR ---
Abdomen 2V AP Flat Upright CLINICAL HISTORY: Abdominal pain FINDINGS: No free air is identified. The small intestinal configuration is nonacute. There is a large amount stool throughout the colon. Patient has had previous cholecystectomy. There is also been previous bariatric surgery IMPRESSION: Nonacute intestinal gas pattern
--- NOTE | 2021-06-09 15:13 | CR ---
UGI w Small Bowel wo Air CLINICAL HISTORY: Abdominal pain Previous bariatric surgery FINDINGS: Patient swallowed small amounts of water-soluble contrast without difficulty. The esophagus has a normal contour. No hiatal hernia or reflux is identified during the exam. Patient is status post gastric bypass. There is some dilatation of the Karla loop. There is mild mucosal edema. SMALL BOWEL FOLLOW-THROUGH: Following contrast meal sequential flat plates of the abdomen were obtained over 40 minutes. The proximal small bowel is dilated. There is some mild mucosal thickening. Transit time was normal. The proximal cecum and a normal contour. Fluoroscopic imaging with compression showed no abnormal bowel loops. IMPRESSION: Status post gastric bypass Mild dilatation of the proximal small bowel with mild mucosal edema. Study was otherwise normal
[2021-06-09] MEDS: Spironolactone 25 MG Tab PO SCH (21:53)
[2021-06-09] MEDS: Amitriptyline 25 MG Tab PO SCH (21:53)
[2021-06-09] MEDS: Gabapentin 100 MG Cap PO SCH (21:53)
[2021-06-09] MEDS: DULoxetine 20 MG Cap PO SCH (21:54)
[2021-06-10] MEDS: Magnesium Sulfate/Water 2 GM/50 ML BAG IV SCH (03:05)
[2021-06-10] MEDS: Acetaminophen 325 MG Tab PO PRN (07:45)
--- NOTE | 2021-06-10 09:19 | DISCH ---
FINAL DIAGNOSES: 1. Marked constipation. 2. Edema and recent jejunojejunostomy status post recent revision of anastomosis. 3. Bariatric surgery status. 4. Periodic limb movement disorder. 5. Psychological insomnia. 6. Irritable bowel syndrome. 7. History of pancreatic insufficiency, now resolved status post revision of jejunojejunostomy. 8. Anxiety and depression. OPERATIVE PROCEDURES: None. SUMMARY: This is a 31-year-old status post recent revision of her jejunojejunostomy for a high-grade partial bowel obstruction. The patient doing relatively well in a step 3 diet. She developed increasing abdominal pain and was seen in the [place] ER. She was felt to have a partial small bowel obstruction at the jejunojejunostomy. On CT scan, she was also found to be certainly constipated. I think this is probably the biggest problem the patient had. The patient was given some bowel stimulation from below and then from above and will be started on Linzess 145 mcg q. day. That seems to be working at this point. An upper GI x-ray was obtained yesterday, which shows some dilation of the Karla limb, but overall quite good passage of the ingested contents through the anastomosis indicating there is probably some edema in the anastomosis, nonobstructing. At this point, the patient will be sent home with a step 2 diet x10 days and try step 3 diet. Will see the patient back on 06/22/2021 with both Mica Greco and Dietary and she will be continuing usual medications plus Linzess 145 mcg q. day. /[id number]
--- NOTE | 2021-06-10 09:39 | CR ---
Abdomen 2V AP Flat Upright CLINICAL HISTORY: Partial SBO FINDINGS: Patient had a small bowel follow-through prior day. There is contrast throughout the colon from cecum to rectum. No residual small bowel contrast is seen IMPRESSION: Small bowel follow-through contrast is passed through the colon
[2021-06-10] MEDS ORDERED: Pantoprazole 40 MG Tab.CR PO SCH (16:30)
== END 2021-06-10 09:34 | disposition home or self-care (01) | DRG 392 ==
LOC: JP.MS 02:18
PROVIDERS: ADMIT Surgery; ATTEND Surgery
DX: K59.00 Constipation, unspecified (principal); E83.42 Hypomagnesemia; Z20.822 Contact with and (suspected) exposure to COVID-19; R60.0 Localized edema; G47.61 Periodic limb movement disorder; G47.00 Insomnia, unspecified; K58.9 Irritable bowel syndrome, unspecified; F41.9 Anxiety disorder, unspecified; F32.A Depression, unspecified; Z98.890 Other specified postprocedural states; Z98.84 Bariatric surgery status
CPT/HCPCS: 0241U; 36415; 74019; 74019-26; 74240; 74240-26; 74248; 80053; 83735; 84100; 85027; A9270-GY; C9113; J1170; J2405; J3411; J3475; J7120; J7121; Q9967